=== PATIENT | male | born 1960 | race Caucasian/White ===

== ENCOUNTER 2020-06-17 09:57 | Outpatient (REF) | payer MEDICARE, OTHER, SELFPAY ==
--- NOTE | 2020-06-17 | PFT_ITS ---
Forced vital capacity, FEV1, [id number], and MVV are all normal. Post bronchodilator therapy, there is no significant change. Total lung capacity and residual volume slightly decreased. Diffusion capacity slightly decreased. CONCLUSION: Very mild degree of restrictive lung disorder. No obstructive airway disorder. Clara Gaam MD MSB/MODL / [id number]
== END 2020-06-17 09:58 | disposition home or self-care (01) ==
LOC: HO.RESP 09:57
PROVIDERS: PCP Internal Medicine; Visit Provider Nurse Practitioner Family
DX: R06.02 Shortness of breath (principal); R91.8 Other nonspecific abnormal finding of lung field; Z86.19 Personal history of other infectious and parasitic diseases
CPT/HCPCS: 94060; 94727; 94729

== ENCOUNTER → 2020-08-23 10:06 | Outpatient (BNVA) | payer MEDICARE, OTHER, SELFPAY | PROVIDERS: PCP Internal Medicine; Visit Provider Urology | DX: Z76.89 Persons encountering health services in other specified circumstances (principal) | CPT/HCPCS: 99202 ==

== ENCOUNTER 2020-08-23 11:02 | Outpatient (REF) | payer MEDICARE, OTHER, SELFPAY ==
[2020-08-23 15:21] LABS: Prostate Specific Antigen 1.13 ng/mL (<0.05-4.0)
[2020-08-27 09:32] LABS: Testosterone, Total 439 ng/dL (250-1100)
== END 2020-08-23 11:03 | disposition home or self-care (01) ==
LOC: HO.10HDL 11:02
PROVIDERS: Visit Provider Urology
DX: N40.1 Benign prostatic hyperplasia with lower urinary tract symptoms (principal); N13.8 Other obstructive and reflux uropathy; Z12.5 Encounter for screening for malignant neoplasm of prostate; N48.6 Induration penis plastica
CPT/HCPCS: 36415; 82365; 84153; 84403; 99202

== ENCOUNTER 2020-10-31 08:21 | Outpatient (REF) | payer MEDICARE, OTHER, SELFPAY ==
--- NOTE | ~2020-10-31 | CT_ITS ---
EXAMINATION: CT CHEST WITHOUT CONTRAST CLINICAL INFORMATION: Follow-up pulmonary nodules COMPARISON: Previous chest x-rays August and December 2019 TECHNIQUE: Multidetector volumetric CT imaging of the chest was done. Axial MIP volume rendering provided. Sagittal and coronal reformatted images were obtained. This CT examination was performed using dose optimization techniques as appropriate, variously including the following: *Automated exposure control *Adjustment of mA and/or kV according to patient size (this includes techniques or standardized protocols for targeted exams where dose is matched to indication/reason for exam; i.e. extremities or head) *Use of iterative reconstruction technique DLP: 294 mGy-cm FINDINGS: LUNGS: The lung volumes are low. There is a 4 mm right upper lobe nodule axial image 105 series 5 that is stable. There is a 3 mm calcified right upper lobe nodule axial image 102 series 5. There is a 3 mm superior segment left lower lobe nodule axial image 126 series 5 that is stable. There is a 2 mm right middle lobe nodule axial image 166 series 5 that is stable. There is a 2 mm right lower lobe nodule axial image 168 series 5 that is stable. Previously identified small left upper lobe pulmonary nodule is not appreciated. No new pulmonary nodule is seen. The previously identified groundglass attenuation peripheral areas in the lungs appear improved. There is residual faint increased attenuation and interstitial markings seen in areas of previous groundglass attenuation. MEDIASTINUM: There are prominent mediastinal lymph nodes that are stable. Largest lymph node is a right paratracheal or tracheoesophageal groove lymph node that measures 0.7 x 1.7 cm axial image 8 series 3. The heart is slightly enlarged.. There is no pericardial effusion. There is mild coronary artery calcification. The thoracic aorta is normal in caliber. PLEURA: There is no pleural effusion. No pleural mass or thickening. AXILLA: No lymphadenopathy. UPPER ABDOMEN: Unremarkable. OSSEOUS STRUCTURES: There are mild degenerative changes of the spine. CT/CT chest wo IV con IMPRESSION: Left upper lobe pulmonary nodule seen on August 2019 exam is not seen otherwise small bilateral pulmonary nodules are stable. Resolved peripheral groundglass opacities from December 2019. There is residual increased linear markings and slight increased attenuation seen in these regions. This may represent post inflammatory scarring related to previous viral/Covid pneumonia. This is a nonspecific appearance and interstitial lung disease disease and hypersensitivity pneumonitis should also be considered. Stable mediastinal lymphadenopathy. Slightly enlarged heart.
== END 2020-10-31 08:22 | disposition home or self-care (01) ==
LOC: HO.CT 08:21
PROVIDERS: PCP Internal Medicine; Visit Provider Internal Medicine
DX: R91.8 Other nonspecific abnormal finding of lung field (principal)
CPT/HCPCS: 71250

== ENCOUNTER 2024-10-26 09:46 | Outpatient (REF) | payer MEDICARE, MEDICAID, SELFPAY ==
[2024-10-26 11:52] LABS: MANUAL DIFF FLAG NO
[2024-10-26 12:01] LABS: Basophils Absolute Auto 0.1 X10*3/uL (0.0-0.2); Basophils Percent Auto 1.3 % (0-2); Eosinophils Absolute Auto 0.1 X10*3/uL (0.0-0.4); Eosinophils Percent Auto 1.9 % (0-4); Hematocrit 39.2 % (42.0-52.0); Hemoglobin 12.5 g/dl (14.0-18.0); Imm Gran Abs Auto 0.02 X10*3/uL (0.00-0.03); Imm Gran Pct Auto 0.3 % (0.0-0.4); Lymphocytes Absolute Auto 2.5 X10*3/uL (1.2-4.9); Lymphocytes Percent Auto 38.4 % (20-40); Mean Corpuscular HGB Conc 31.9 g/dl (31.0-36.0); Mean Corpuscular Hemoglobin 26.9 pg (27.0-33.0); Mean Corpuscular Volume 84.3 fL (80.0-98.0); Mean Platelet Volume 10.3 fL (9.4-12.4); Monocytes Absolute Auto 0.7 X10*3/uL (0.1-1.2); Monocytes Percent Auto 10.2 % (2-11); Neutrophils Absolute Auto 3.1 x10*3/uL (2.0-8.3); Neutrophils Percent Auto 47.9 % (45-73); Platelet Count 371 X10*3/uL (160-400); Red Blood Count 4.65 X10*6/uL (4.60-5.80); Red Cell Distribution Width 13.5 % (11.0-16.0); White Blood Count 6.4 X10*3/uL (4.8-10.8)
[2024-10-26 12:22] LABS: Alanine Aminotransferase 27 U/L (0-40); Albumin Level 4.4 g/dL (3.5-5.0); Alkaline Phosphatase 64 U/L (39-117); Anion Gap 13 (12-20); Aspartate Amino Transferase 17 U/L (5-37); Bilirubin Total 0.5 mg/dL (0.0-1.0); Blood Urea Nitrogen 22 mg/dL (9-16); Calcium 9.6 mg/dL (8.4-10.2); Carbon Dioxide 28 mmol/L (22-29); Chloride 104 mmol/L (96-108); Cholesterol 206 mg/dL (<200); Estimated Glomerular Filt Rate > 60; Glucose Random 282 mg/dL (60-115); HDL Cholesterol 34 mg/dL (>40); Iron 75 mcg/dL (45-160); LDL Cholesterol Calculated 133 mg/dL (<100); Percent Iron Saturation 31 % (15-50); Potassium 4.5 mmol/L (3.3-5.1); Sodium 140 mmol/L (135-145); Total Iron Binding Capacity 243 mcg/dL (228-428); Total Protein 7.5 g/dL (6.5-8.0); Triglycerides 199 mg/dL (<150); Unsaturated Iron Binding 168 ug/dL
[2024-10-26 12:33] LABS: Parathyroid Hormone Intact 35.2 pg/mL (8.7-77.1)
[2024-10-26 12:34] LABS: Creatinine Urine 135.56 mg/dL; Microalbum/Creatinine Ratio Ur 31.7 ug/mg cr (<30)
[2024-10-26 12:41] LABS: Ferritin 353 ng/mL (20-250); Vitamin D 25-OH Total 30.7 ng/mL (>30)
[2024-10-26 12:46] LABS: Vitamin B12 354 pg/mL (200-900)
[2024-10-27 15:53] LABS: Calcium, Ionized 5.1 mg/dL (4.7-5.5)
[2024-10-27 22:18] LABS: Prot Elec - Albumin 4.4 g/dL (3.8-4.8); Prot Elec - Alpha1 0.3 g/dL (0.2-0.3); Prot Elec - Alpha2 0.9 g/dL (0.5-0.9); Prot Elec - Beta 1 0.4 g/dL (0.4-0.6); Prot Elec - Beta 2 0.4 g/dL (0.2-0.5); Prot Elec - Gamma 0.8 g/dL (0.8-1.7); Prot Elec - Total Protein 7.2 g/dL (6.1-8.1)
== END 2024-10-26 09:47 | disposition home or self-care (01) ==
LOC: HO.HHCL 09:46
PROVIDERS: Visit Provider Internal Medicine
DX: E83.52 Hypercalcemia (principal); E11.9 Type 2 diabetes mellitus without complications; E78.2 Mixed hyperlipidemia; D50.9 Iron deficiency anemia, unspecified
CPT/HCPCS: 36415; 80053; 80061; 82043; 82306; 82330; 82570; 82607; 82728; 82746; 83540; 83970; 84165; 85025

== ENCOUNTER 2024-11-11 12:01 | Emergency (ER) | payer MEDICARE, MEDICAID, SELFPAY ==
[2024-11-11 12:07] VITALS: BP 147/63; PULSE 87; RESP 18; TEMP 36.7; O2SAT 97
--- NOTE | 2024-11-11 12:14 | ED.GENADULT ---
HPI - General Adult General Chief complaint: General Medical Stated complaint: Nose reddness Time Seen by Provider: 11/11/24 12:10 Source: patient, RN notes reviewed and old records reviewed Mode of arrival: ambulatory Limitations: no limitations History of Present Illness ED Provider: Joycelyn ACUÑA narrative: 64-year-old male with past medical history significant for diabetes presents for evaluation of a red, painful lump on his nose. Patient reports about 2 weeks ago he had [employer] small, painful bump on his nose, the area is now red. He denies any significant swelling. Denies any fevers, chills. Denies any injury to the nose He has no other complaints or concerns at this time Related Data Home Medications ?Medication ?Instructions ?Recorded ?Confirmed amlodipine 5 mg tablet 5 mg PO DAILY 08/23/20 blood sugar diagnostic #10 ea 08/23/20 lancets 28 gauge #100 ea 08/23/20 lisinopril 20 mg tablet 20 mg PO DAILY 08/23/20 metformin 1,000 mg tablet 1,000 mg PO 08/23/20 morphine 15 mg tablet,extended mg PO 08/23/20 release Previous Rx's ?Medication ?Instructions ?Recorded pentoxifylline 400 mg 400 mg PO BID 90 days #180 tabs 08/23/20 tablet,extended release vitamin E (dl, acetate) 450 mg 450 mg PO DAILY #90 caps 08/23/20 (1,000 unit) capsule cyclobenzaprine 10 mg tablet 10 mg PO Q8H #14 tabs 09/05/22 ketorolac 10 mg tablet 10 mg PO Q8H #14 tabs 09/05/22 acetaminophen 500 mg tablet 500 mg PO Q6H PRN fever or pain 09/13/22 (Tylenol Extra Strength) #14 tabs cyclobenzaprine 5 mg tablet 5 mg PO Q8H PRN pain (scale score 09/13/22 7-10) 5 days #14 tabs lidocaine 5 % topical patch 1 patch topical DAILY PRN pain #30 09/13/22 (Lidoderm) ea cephalexin 500 mg capsule 500 mg PO QID 10 days #40 caps 05/23/23 doxycycline hyclate 100 mg tablet 100 mg PO BID #20 tabs 05/23/23 cephalexin 500 mg capsule 500 mg PO QID #28 caps 11/11/24 mupirocin 2 % topical ointment 1 appl topical BID 1 week #22 grams 11/11/24 Allergies Allergy/AdvReac Type Severity Reaction Status Date / Time No Known Allergies Allergy Verified 11/11/24 12:08 [No Known Allergies*] Review of Systems Constitutional: Constitutional: Denies body ache(s), Denies chills and Denies fever(s) Eyes: Eyes: Denies blurry vision ENT: Denies dizziness Cardiovascular: Cardiovascular: Denies chest pain and Denies dyspnea Respiratory: Respiratory: Denies cough and Denies dyspnea Gastrointestinal: Gastrointestinal: Denies abdominal pain, Denies nausea and Denies vomiting Musculoskeletal: Musculoskeletal: Denies back pain Integumentary/Breasts: Skin/Breast: Reports erythema, Reports skin swelling and Denies wounds Neurologic: Denies dizziness PMFSH Past Medical History Medical History (Updated 11/11/24 @ 12:16 by Darren Hirsch) Diabetes Social History Social History (System 09/30/24 @ 11:43 by Roshni Shaw) Alcohol intake: current Alcohol intake frequency: a few times a week Advance Directives: No Advance Directives Information Provided: Yes Physical Exam ED Vital Signs: Vital Signs - 24 hr 11/11/24 12:07 11/11/24 12:23 Temperature 98.0 F 98.0 F Pulse Rate 87 87 Respiratory Rate 18 18 Blood Pressure 147/63 H 147/63 H Pulse Oximetry 97 97 Oxygen Delivery Method Room Air Room Air BMI result Body Mass Index 30.0 Const General: healthy appearing, comfortable, no acute distress, alert and awake Nutritional Appearance: well nourished Orientation/consciousness: patient oriented x3 HENMT Other: 1 cm area of erythema with a small amount of induration to the tip of the nose slightly on the right side. No open wounds, no drainage. He was the patient. No evidence of fracture nasal bone edema or abscess. No septal hematoma Head: Yes normocephalic and Yes atraumatic Eyes Eyelids: Yes eyelids normal Conjunctivae: conjunctivae normal Sclerae: sclerae normal Corneas: corneas normal Pupils: Equal, round and reactive pupils present EOM: EOMs intact bilaterally Neck Neck: Yes full ROM Resp Effort & Inspection: normal respiratory effort, able to speak in complete sentences and not labored GI Inspection: No distended Palpation (GI): Soft to palpation, not firm, nontender, no guarding and not rigid Skin General skin exam: elasticity normal Neuro General: patient oriented x3 Cranial nerves: Yes Equal, round and reactive pupils present and Yes Bilaterally intact EOM present Cognition (Neuro): normal cognition Extrem Other: Moving all extremities well without any obvious deformities Medical Decision Making Medical Decision Making MDM Narrative: 64-year-old male presents for evaluation of a 2 week history of a red painful lump to his nose. This appears most consistent with a mild skin infection. We will treat with mupirocin and cephalexin. If this does not resolve with antibiotics, I encouraged the patient to get a biopsy to rule out malignancy though I feel this is less likely given the acuity Differential Diagnosis Differential Diagnoses: The differential diagnosis associated with the presentation includes Cellulitis Abscess Dermatitis Basal cell carcinoma Squamous cell carcinoma Melanoma Discharge Plan Discharge Clinical Impression: Cellulitis of nasal tip Patient Disposition: Home, Self-Care Instructions: Cellulitis (ED) Additional Instructions: Your symptoms are most consistent with a minor skin infection Use the antibiotic ointment twice daily for 1 week. Use the antibiotic pills 4 times a day for 1 week It was important to follow up with your primary doctor. If the redness does not resolve with the antibiotics, you may need a biopsy Return for new or worsening symptoms Prescriptions: New mupirocin 2 % ointment 1 appl topical BID 7 Days Qty: 22 0RF cephalexin 500 mg capsule 500 mg PO QID Qty: 28 0RF No Action cyclobenzaprine 5 mg tablet 5 mg PO Q8H PRN (Reason: pain (scale score 7-10)) 5 Days Qty: 14 0RF acetaminophen [Tylenol Extra Strength] 500 mg tablet 500 mg PO Q6H PRN (Reason: fever or pain) Qty: 14 0RF lidocaine [Lidoderm] 5 % adhesive patch,medicated 1 patch topical DAILY MDD remove after 12 hours PRN (Reason: pain) Qty: 30 0RF Rx Instructions: leave on most painful area for up to 12 hrs cyclobenzaprine 10 mg tablet 10 mg PO Q8H Qty: 14 0RF ketorolac 10 mg tablet 10 mg PO Q8H Qty: 14 0RF Rx Instructions: first dose given in the ED by IM and patient tolerated well cephalexin 500 mg capsule 500 mg PO QID 10 Days Qty: 40 0RF doxycycline hyclate 100 mg tablet 100 mg PO BID Qty: 20 0RF morphine 15 mg tablet extended release PO amlodipine 5 mg tablet 5 mg PO DAILY (DME) FreeStyle Lite Strips Strip See Rx Instructions Not Applicable DAILY Qty: 10 Rx Instructions: As directed (DME) lancets 28 gauge misc See Rx Instructions topical DAILY Qty: 100 Rx Instructions: As directed lisinopril 20 mg tablet 20 mg PO DAILY metformin 1,000 mg tablet 1,000 mg PO pentoxifylline 400 mg tablet extended release 400 mg PO BID 90 Days Qty: 180 1RF Rx Instructions: administer with meals vitamin E (dl, acetate) 450 mg (1,000 unit) capsule 450 mg PO DAILY Qty: 90 1RF Interventions: ED Discharge Assessment Last Done: 11/11/24 12:23 Discharge Date/Time: 11/11/24 12:30 Print Language: Guamanian
[2024-11-11 12:23] VITALS: BP 147/63; PULSE 87; RESP 18; TEMP 36.7; O2SAT 97
--- OUTSIDE RECORDS SUMMARY | 2024-11-11 14:27 | XMS_ITS | Encounter Summary ---
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 Name Role Phone Claus Berg MD Primary Care Provide r Encounter Details Date Type Department Care Team (Late st Contact Info) Description 12/12/2022 Abstract [facility] [address] [place], [place] [phone] Claus Berg MD [address] [place], [place] [phone] Social History Tobacco Use Types Packs/Day Years Used Date Smoking Tobacco: Never Smokeless Tobacco: Never Depression Answer Date Recorded Patient Health Questionnaire-9 Score 0 10/02/2022 Depression Answer Date Recorded Patient Health Questionnaire-2 Score 0 10/02/2022 Sex and Gender Information Value Date Recorded Sex Assigned at Male 06/04/2022 10:15 AM EDT Legal Sex Male 10:15 AM EDT Gender Identity Male 06/04/2022 10:15 AM EDT Sexual Orientation Straight 06/04/2022 10 :15 AM EDT documented as of this encounter Plan of Treatment Upcoming Encounters Date Type Department Care Team (Late st Contact Info) Description 01/28/2025 1:15 PM EDT Office Visit [facility] [address], [place] [phone] Claus Berg MD [address] [place], [place] [phone] documented as of this encounter Procedures Procedure Name Priority Date/Time Associated Diagnosis Comments COLONOSCOPY Routine 01/10/2018 documented in this encounter Results * Colonoscopy (01/10/2018) Colonoscopy Normal Normal 01/10/2018 Narrative Tara Britton - 01/10/2018 4:03 PM EDT Recommended 10 year follow up us Historical Provider HEALTH MAINTENANCE Edited Result - Final documented in this encounter Visit Diagnoses Not on filedocumented in this encounter Additional Health Concerns Assessment Noted Time PHQ-9 Depression Total Score: 0 10/02/19 23 10:50 AM EST documented as of this encounter Care Teams Lead Sewage Plant Operator Relationship Specialty Start Date End Date Claus Berg MD [address] [place] [address] PCP - General Internal Medicine 05/12/14 documented as of this encounter
--- OUTSIDE RECORDS SUMMARY | 2024-11-11 14:27 | XMS_ITS | Clinical Summary ---
Author Organization [employer] [facility] it[facility] Address [address] [place] [address] Care Team Providers Care Ecd Name Role Phone Unavailable Primary Care Provider Unavailabl e Social History Tobacco Use Types Packs/Day Years Used Date Smoking Tobacco: Never Assessed Sex and Gender Information Value Date Recorded Sex Assigned at Not on file Legal Sex Male 4:34 AM EST Gender Identity Not on file Sexual Orientation Not on file Plan of Treatment Health Maintenance Due Date Last Done Comments DTaP,Tdap,and Td Vaccines (1 - Tdap) 1977 Pneumococcal Vaccine: 50+ Ye ars (1 of 1 - PCV) 2008 Zoster Vaccines (1 of 2) 2008 COVID-19 Vaccine ( - 2023-2 5 season) 2024 Influenza Vaccine (#1) 2024 RSV Immunization Adult Patie nts (1 - 1-dose 75+ series) 2033 HIB Vaccines Aged Out No longer eligi ble based on patient's age to complete this topic HPV Vaccines Aged Out No longer eligi ble based on patient's age to complete this topic Hepatitis A Vaccines Aged Out No long er eligible based on patient's age to complete this topic Hepatitis B Vaccines Aged Out No long er eligible based on patient's age to complete this topic IPV Vaccines Aged Out No longer eligi ble based on patient's age to complete this topic MMR Vaccines Aged Out No longer eligi ble based on patient's age to complete this topic Meningococcal ACWY Vaccine Aged Out N o longer eligible based on patient's age to complete this topic Meningococcal B Vaccine Aged Out No l onger eligible based on patient's age to complete this topic RSV Immunization Patients Un myriam 20 months Aged Out No longer eligible b ased on patient's age to complete this topic Varicella Vaccines Aged Out No longer eligible based on patient's age to complete this topic
--- OUTSIDE RECORDS SUMMARY | 2024-11-11 14:27 | XMS_ITS | Clinical Summary ---
Author Organization [employer] Address [address] [facility] [address] [facility] [address] [place] [address] Care Team Providers Care Squad Leader Name Role Phone Claus Breg MD Primary Care Provide r Allergies No known active allergies Medications glucose blood (FREESTYLE LITE) test strip apply 1 by to skin route every day Active sildenafil (Viagra) 100 MG tablet take 1 tablet by oral route every day as needed approximately 1 hour before sexual activity 021 Active ketorolac (Acular) 0.5 % ophthalmic solution INSTILL 1 DROP INTO AFFECTED EYE THREE TIMES A DAY DIRECTED STARTING 2 DAYS PRIOR TO EACH SURGERY. TAPER DIRECTED. 022 Active tiZANidine (Zanaflex) 2 MG tabletIndications :Chronic midline low back pain without sciatica Take 1 tablet (2 mg) by mouth every 8 (eight) hours if needed for muscle spasms. 30 tablet 023 Active Acetaminophen Extra Strength 500 MG tablet TAKE 1 TABLET BY MOUTH EVERY 6 HOURS NEEDED FOR FEVER OR PAIN 023 Active morphine CR (MS Contin) 15 MG 12 hr tabletIndications :Chronic midline low back pain without sciatica Take 1 tablet (15 mg) by mouth if needed each day for severe pain. Do not crush, chew, or split. 7 tablet 024 Active metFORMIN (Glucophage) 1000 MG tablet TAKE 1 TABLET BY MOUTH TWICE DAILY WITH THE MORNING AND EVENING MEAL 180 tablet 1 024 Active amLODIPine (Norvasc) 5 MG tabletIndications :Essential hypertension Take 1 tablet (5 mg) by mouth Once per day. 90 tablet 1 025 Active lisinopril 20 MG tabletIndications :Essential hypertension TAKE 1 TABLET BY MOUTH EVERY DAY 90 tablet 1 025 Active Continuous Glucose Merchandise Planner (FreeStyle Arnoldo 2 [place]) deviceIndications :Type 2 diabetes mellitus without complication, without long-term current use of insulin (CMS/[facility]) Scan sensor every 8 hours 1 each 3 Active Continuous Glucose Sensor (FreeStyle Arnoldo 2 Sensor) miscIndications:T ype 2 diabetes mellitus without complication, without long-term current use of insulin (CMS/[facility]) Apply 1 sensor every 14 days 2 each 3 Active rosuvastatin (Crestor) 10 MG tabletIndications :Mixed hyperlipidemia Take 1 tablet (10 mg) by mouth Once per day. 30 tablet 6 025 2025 Active Dulaglutide (Trulicity) 0.75 MG/0.5ML solution auto-injectorIndi cations:Type 2 diabetes mellitus without complication, without long-term current use of insulin (CMS/[facility]) Inject 0.75 mg under the skin 1 (one) time per week. 0.5 mL 6 Active fenofibrate micronized (Lofibra) 134 MG capsuleIndication s:Mixed hyperlipidemia take 1 capsule by oral route every day with food 30 capsule 3 024 2024 Discontinued(A lternate therapy) Dulaglutide (Trulicity) 0.75 MG/0.5ML solution auto-injectorIndi cations:Type 2 diabetes mellitus without complication, without long-term current use of insulin ([facility]) Inject 0.75 mg under the skin 1 (one) time per week. 0.5 mL 1 025 2024 Discontinued(R eorder (will not trigger notification to Pharmacy)) Active Problems Problem Noted Date Diagnosed Date Other specified anemias 10/27/2024 Assessment & Plan (10/27/2024 11:44 AM EDT): Patient with anemia, B12 and folate normal, Iron studies normal Etiology Lab Results Component Value Date WBC 6.4 10/26/2024 HGB 12.5 (L) 10/26/2024 HCT 39.2 (L) 10/26/2024 MCV 84.3 10/26/2024 PLT 371 10/26/2024 Plan: Hematology referral for further work up Overweight (BMI 25.0-29.9) 10/27/2024 Assessment & Plan (10/27/2024 11:55 AM EDT): Patient has been counseled and educated about diet and exercise. Personal goal of weight loss discussedPatient has comorbidity of: DM Serum calcium elevated 12/12/2023 Assessment & Plan (12/12/2023 10:25 AM EDT): Will obtain an ionized calcium pending on result will decide if further work up needed Mild elevation 10.5 ( limit 10.2) Complete edentulism 10/17/2023 Ill-fitting dentures 10/16/2023 Preventative health care 09/12/2023 Assessment & Plan (12/12/2023 10:12 AM EDT): PSA: 09/26/2023 Normal Colonoscopy: done on 04/20/2013 showed a tubular adenoma (Dr Lito Leung) Repeat 01/10/2018 was Normal 10 year f/u recommended Vaccines: Declines Flu shot Td: 05/08/2005 Pneumovax: 01/21/2009 Assessment & Plan (09/12/2023 10:39 AM EST): PSA 05/2018 Normal Colonoscopy: done on 04/20/2013 showed a tubular adenoma (Dr Lito Lenug) Repeat 01/10/2018 was Normal 10 year f/u recommended Vaccines: Declines Flu shot Td: 05/08/2005 Pneumovax: 01/21/2009 Primary osteoarthritis of right knee 10/02/2022 Assessment & Plan (10/02/2022 9:42 AM EST): Patient with chronic right knee pain Plain films of right hip and knee showed mild deg arthritis of hip and mild to moderate tricompartmental arthritis of right knee 12/09/2014 PT eval completed, pt does not want to have any intervention or treatment at the moment Class 1 obesity due to excess calories in adult 10/02/2022 Assessment & Plan (10/02/2022 10:45 AM EST): Patient has been counseled and educated about diet and exercise. Personal goal of weight loss discussedPatient has comorbidity of: DM, HTN, High Lipids Exercise counseling 10/02/2022 Decreased hearing of both ears 10/02/2022 Assessment & Plan (10/02/2022 11:13 AM EST): Pt with c/o worsening hearing Plan: ENT evaluation Pulmonary nodules 08/07/2022 Assessment & Plan (10/02/2022 9:44 AM EST): ER visit on 08/13/19 shows incidental finding on chest CT of: Multiple tiny subcentimeter pulmonary nodules, some of which are new from the previous examination. At least one of the nodules is calcified. Recommend additional follow-up low-dose CT chest in 12 months time. Repeat Chest CT 10/2020 showed: Left upper lobe pulmonary nodule seen on August 2019 exam is not seen otherwise small bilateral pulmonary nodules are stable. Resolved peripheral groundglass opacities from December 2019. There is residual increased linear markings and slight increased attenuation seen in these regions. This may represent post inflammatory scarring related to previous viral/Covid pneumonia. This is a nonspecific appearance and interstitial lung disease disease and hypersensitivity pneumonitis should also be considered. Stable mediastinal lymphadenopathy. Slightly enlarged heart. No further intervention Other male erectile dysfunction 08/07/2022 Assessment & Plan (10/02/2022 9:43 AM EST): Testosterone Free and Total normal Uses Viagra 100 mg tbas 1/2 tab 1 hr prior to intercourse Bilateral cataracts 12/20/2021 Bunion 11/25/2018 Rotator cuff impingement syndrome 09/17/2017 Assessment & Plan (10/02/2022 9:43 AM EST): Pt with previous c/o moderate pain on his right shoulder that was a result of a friend of him pulling onto his right arm. since then he has been unable to lift his arm over the 90 degree angle. Not improving despite daily use of NSAIDS Evaluated by Dr Gavi Mitchell Orthopaedic specialist who diagnosed him with this condition and recommended a steroid injection Essential hypertension 06/23/2015 Assessment & Plan (08/25/2024 3:11 PM EST): Pt here for a f/u uncontrolled He is supposed to be on Lisinopril 40 mg po daily and Amlodipine 5 mg po daily . Pt reports non compliance Pt's most recent electrolytes, Bun and Creatinine done on: 12/06/2023 were wnl. Will repeat patient has advised to adhere to a low sodium diet, encouraged about medication compliance, counseled about weight loss. Plan: No changes , repeat BMP f/u 3 months Assessment & Plan (12/12/2023 10:22 AM EDT): Pt here for a f/u controlled He is supposed to be on Lisinopril 40 mg po daily and Amlodipine 5 mg po daily Pt's most recent electrolytes, Bun and Creatinine done on: 12/06/2023 were wnl. patient has advised to adhere to a low sodium diet, encouraged about medication compliance, counseled about weight loss. Plan: No changes f/u 3 months Assessment & Plan (09/12/2023 10:26 AM EST): Pt here for a f/u Uncontrolled, he did not take his meds today He is supposed to be on Lisinopril 40 mg po daily and Amlodipine 5 mg po daily Pt's most recent electrolytes, Bun and Creatinine done on: 10/09/2022 were wnl. Today will order a repeat patient has advised to adhere to a low sodium diet, encouraged about medication compliance, counseled about weight loss. Plan: No changes f/u 3 months Assessment & Plan (10/02/2022 11:14 AM EST): Pt here for a f/u Uncontrolled, he did not take his meds today He is supposed to be on Lisinopril 40 mg po daily and Amlodipine 5 mg po daily Pt's most recent electrolytes, Bun and Creatinine done on: 09/20/2021 were wnl. Today will order a repeat patient has advised to adhere to a low sodium diet, encouraged about medication compliance, counseled about weight loss. Plan: No changes since pts BP is elevated due to non compliance f/u 3 months Mixed hyperlipidemia 06/23/2015 Assessment & Plan (10/27/2024 11:46 AM EDT): here for a f/u Patient with elevated lipids. Most recent lipid profile from: Lab Results Component Value Date TRIG 199 (H) 10/26/2024 TRIG 286 (H) 09/26/2023 CHOL 206 (H) 10/26/2024 CHOL 222 (H) 09/26/2023 LDLCHOLCAL 133 (H) 10/26/2024 LDLCHOLCAL 124 (H) 09/26/2023 HDL 34 (L) 10/26/2024 HDL 41 09/26/2023 He used to be on Fenofibrate, In the past he was taking Atorvastatin Plan: start Crestor 10 mg po qhs Patient has been advised to try to adhere to a low cholesterol diet, counseled and educated about diet and exercise, Patient has been encouraged to come up with a personal goal for weight loss. The 10-year ASCVD risk score (Ivonne SEE, et al., 2019) is: 44% Values used to calculate the score: Age: 64 years Sex: Male Is Non- : No Diabetic: Yes Tobacco smoker: No Systolic Blood Pressure: 152 mmHg Is BP treated: Yes HDL Cholesterol: 34 mg/dL Total Cholesterol: 206 mg/dL Assessment & Plan (08/25/2024 2:57 PM EST): here for a f/u Patient with elevated lipids. Most recent lipid profile from: 09/26/2023 Lab Results Component Value Date TRIG 286 (H) 09/26/2023 TRIG 411 (H) 10/09/2022 CHOL 222 (H) 09/26/2023 LDLCHOLCAL 124 (H) 09/26/2023 HDL 41 09/26/2023 He is supposed to be on Fenofibrate instead 134 mg po daily, In the past he was taking Atorvastatin Patient has been advised to try to adhere to a low cholesterol diet, counseled and educated about diet and exercise, Patient has been encouraged to come up with a personal goal for weight loss. Repeat Lipid profile The 10-year ASCVD risk score (Ivonne SEE, et al., 2019) is: 48.5% Values used to calculate the score: Age: 64 years Sex: Male Is Non- : No Diabetic: Yes Tobacco smoker: No Systolic Blood Pressure: 169 mmHg Is BP treated: Yes HDL Cholesterol: 41 mg/dL Total Cholesterol: 222 mg/dL Assessment & Plan (12/12/2023 10:11 AM EDT): here for a f/u Patient with elevated lipids. Most recent lipid profile from: 09/26/2023 Lab Results Component Value Date TRIG 286 (H) 09/26/2023 TRIG 411 (H) 10/09/2022 CHOL 222 (H) 09/26/2023 LDLCHOLCAL 124 (H) 09/26/2023 HDL 41 09/26/2023 He is supposed to be on Fenofibrate instead 134 mg po daily, In the past he was taking Atorvastatin Lipid seemed to have improved Patient has been advised to try to adhere to a low cholesterol diet, counseled and educated about diet and exercise, Patient has been encouraged to come up with a personal goal for weight loss. The 10-year ASCVD risk score (Ivonne SEE, et al., 2019) is: 32.8% Values used to calculate the score: Age: 63 years Sex: Male Is Non- : No Diabetic: Yes Tobacco smoker: No Systolic Blood Pressure: 132 mmHg Is BP treated: Yes HDL Cholesterol: 41 mg/dL Total Cholesterol: 222 mg/dL Assessment & Plan (09/12/2023 10:28 AM EST): here for a f/u Patient with elevated lipids. Most recent lipid profile from: 10/09/2022 shows Component Ref Range & Units 11 mo ago (10/09/22) 1 yr ago (07/02/22) 1 yr ago (09/20/21) 3 yr ago (02/16/20) Cholesterol, Total <200 mg/dL 227??High?? 209??High?? 202??High?? 241??High?? HDL Cholesterol > OR = 40 mg/dL 37??Low?? 39??Low?? 41 41 Triglycerides <150 mg/dL 411??High?? 223??High?? CM 403??High?? CM 228??High?? CM Comment: ?? If a non-fasting specimen was collected, consider repeat triglyceride testing on a fasting specimen if clinically indicated. Chester et al. J. of Clin. Lipidol. 2015;9:129-169. ?? LDL Cholesterol 134??High?? R, CM SEE COMMENT R, CM 161??High?? R, CM Comment: ?? LDL cholesterol not calculated. Triglyceride levels greater than 400 mg/dL invalidate calculated LDL results. ?? Reference range: <100 ?? Desirable range <100 mg/dL for primary prevention; ?? <70 mg/dL for patients with CHD or diabetic patients with > or = 2 CHD risk factors. ?? LDL-C is now calculated using the Umesh calculation, which is a validated novel method providing better accuracy than the Friedewald equation in the estimation of LDL-C. Paul SS et al. PACO. 2013;310(19): 3539-2121 (http://education.[employer]/faq/XRZ060) Chol/HDLC Ratio <5.0 (calc) 6.1??High?? 5.4??High?? 4.9 5.9??High?? Non-HDL Cholesterol <130 mg/dL (calc) 190??High?? 170??High?? CM 161??High?? CM 200??High?? CM He is supposed to be on Fenofibrate instead 134 mg po daily, In the past he was taking Atorvastatin repeat Lipid profile prior to next visit Patient has been advised to try to adhere to a low cholesterol diet, counseled and educated about diet and exercise, Patient has been encouraged to come up with a personal goal for weight loss. Assessment & Plan (10/02/2022 9:39 AM EST): here for a f/u Patient with elevated lipids. Most recent lipid profile from: 07/02/2022 shows a total Cholesterol of: 209 Triglycerides of: 223 HDL of: 39 and LDL of: 134 He is on Fenofibrate instead 67 mg po daily, In the past he was taking Atorvastatin repeat Lipid profile prior to next visit Patient has been advised to try to adhere to a low cholesterol diet, counseled and educated about diet and exercise, Patient has been encouraged to come up with a personal goal for weight loss. Tubular adenoma 04/22/2013 Assessment & Plan (10/02/2022 9:44 AM EST): Colonoscopy done on 04/20/2013 showed a tubular adenoma (Dr Lito Leung). repeat 01/10/[address] Huff recommended 10 year f/u Chronic midline low back pain without sciatica 0 12/08/2012 Assessment & Plan (12/12/2023 10:20 AM EDT): Pt here for f/u with c/u acute on chronic low back pain. Seen in the ER 12/06/2023 Pt has a Hx of chronic low back pain, previous treatment in the past with PT and epidural injections which according to pt were not helpful. Pt had a neurosurgical evaluation (Dr Hearn) on 06/28/2004 who reviewed pt's MRI that showed a disc herniation abutting and compressing the S1 nerve root on the left side. he stated that there was no doubt that the pt had a lumbar radiculopathy in the left side and most probably a disc herniation evidence by MRI at the level of L5-S1, encroaching upon the S1 nerve root. Back then he stated that if the symptoms were to persist a surgery was indicated, but pt was not interested in any surgical interventions. His last MRI on record was done in 2006 and was pretty much unchanged. I Exam today suggestive of muscle spasm Have been prescribing MS contin 15 mg po daily and on a PRN basis. Pt was seen at [facility] recently with c/o acute on chronic back pain Pt already scheduled to go to [facility] 12/20/2023 Assessment & Plan (10/02/2022 11:12 AM EST): Pt here for f/u with c/u acute on chronic low back pain. Pt has a Hx of chronic low back pain, previous treatment in the past with PT and epidural injections which according to pt were not helpful. Pt had a neurosurgical evaluation (Dr Hearn) on 06/28/2004 who reviewed pt's MRI that showed a disc herniation abutting and compressing the S1 nerve root on the left side. he stated that there was no doubt that the pt had a lumbar radiculopathy in the left side and most probably a disc herniation evidence by MRI at the level of L5-S1, encroaching upon the S1 nerve root. Back then he stated that if the symptoms were to persist a surgery was indicated, but pt was not interested in any surgical interventions. His last MRI on record was done in 2006 and was pretty much unchanged. I Patient was seen at [facility] in 2 different ocassions. Exam today suggestive of muscle spasm Have been prescribing MS contin 15 mg po daily and on a PRN basis. Interested in seeing a cashier tube room I have added a muscle relaxant today will refer to [facility] Type 2 diabetes mellitus without complication Assessment & Plan (10/27/2024 11:52 AM EDT): Pt here for a f/u He is on a regimen of: Metformin 1000 mg po BID and Trulicity 0.75 once a week Glipizide was discontinued Hgb A1c 08/25/2024: 9.9 from 7.3 from a previous one 10.9 Pt declined to come and see our certified lactation educator. Did not want to Inject Trulicity. Today he is agreable Previously started on by Kristina Lopez ANP Eye exam , pt referred to our Eye care Program Microalbumin checked on: 06/20/2020 was: 1.3 Pt on an JOEL inhibitor Lisinopril Foot check risk of zero Pt reminded to take Asa 81 mg po daily Pt declined medbox. Plan: Continue current regimen Pt advised to: adhere to diabetic diet check your blood sugars regularly check your feet on a daily basis Assessment & Plan (08/25/2024 3:10 PM EST): Pt here for a f/u He is on a regimen of: Metformin 1000 mg po BID patient tells me he ran out of Glipizide XL 5 mg po daily Hgb A1c 08/25/2024: 9.9 from 7.3 from a previous one 10.9 Pt declined to come and see our certified lactation educator. Did not want to Inject Trulicity. Today he is agreable Previously started on by Kristina Lopez ANP Eye exam , pt referred to our Eye care Program Microalbumin checked on: 06/20/2020 was: 1.3 Pt on an JOEL inhibitor Lisinopril Foot check risk of zero Pt reminded to take Asa 81 mg po daily Pt declined medbox. Plan: start Trulicity 0.75 mcg weekly Pt denies any hx of papillary thyroid cancer or family Hx of this, No hx of pancreatitis. STOP Glipizide 1 month f/u Pt advised to: adhere to diabetic diet check your blood sugars regularly check your feet on a daily basis Assessment & Plan (12/12/2023 10:24 AM EDT): Pt here for a f/u DM improved He is on a regimen of: Metformin 1000 mg po BID and Glipizide XL 5 mg po daily Glucometer today shows improvement with an average of 113 Hgb A1c 09/12/2023: 7.3 from a previous one 10.9 Pt declined to come and see our certified lactation educator. Did not want to Inject Trulicity Previously started on by Kristina Lopez ANP Eye exam , pt referred to our Eye care Program Microalbumin checked on: 06/20/2020 was: 1.3 Pt on an JOEL inhibitor Lisinopril Foot check risk of zero Pt reminded to take Asa 81 mg po daily Pt declined medbox. Plan: Continue current regimen 3 months f/u Pt advised to: adhere to diabetic diet check your blood sugars regularly check your feet on a daily basis Assessment & Plan (09/12/2023 10:41 AM EST): Pt here for a f/u DM, uncontrolled He is on a regimen of: Metformin 1000 mg po BID and Glipizide XL 5 mg po daily Pt tells me that since he started taking his medications regularly his BG is better Glucometer today shows improvement with an average of 131 Hgb A1c 09/12/2023: 10.9 from a previous one of 9.2 Pt declined to come and see our certified lactation educator. Did not want to Inject Trulicity Previously started on by Kristina Lopez ANP Eye exam , pt referred to our Eye care Program Microalbumin checked on: 06/20/2020 was: 1.3 Pt on an JOEL inhibitor Lisinopril Foot check risk of zero Pt reminded to take Asa 81 mg po daily Pt declined medbox. Plan: Pt would like to stay as is 3 months f/u Pt advised to: adhere to diabetic diet check your blood sugars regularly check your feet on a daily basis Assessment & Plan (10/02/2022 10:56 AM EST): Pt here for a f/u DM, improving He is on a regimen of: Metformin 1000 mg po BID and Glipizide XL 5 mg po daily Pt tells me that since he started taking his medications regularly his BG is better Glucometer today shows improvement with an average of 131 Hgb A1c 10/02/2021 Was 9.2 from a previous one of 10.2 Pt declined to come and see our certified lactation educator. Did not want to Inject Trulicity Previously started on by Kristina BACA Eye exam , pt referred to our Eye care Program Microalbumin checked on: 06/20/2020 was: 1.3 Pt on an JOEL inhibitor Lisinopril Foot check risk of zero Pt reminded to take Asa 81 mg po daily Pt declined medbox. Plan: Pt would like to stay as is 4 months f/u Pt advised to: adhere to diabetic diet check your blood sugars regularly check your feet on a daily basis Encounters Date Type Department Care Team Description 10/27/2024 11:30 AM EDT Office Visit [facility] [place] [address] Claus Berg MD Anemia due to other cause, not classified (Primary Dx); Type 2 diabetes mellitus without complication, without long-term current use of insulin ([facility]); Mixed hyperlipidemia; Overweight (BMI 25.0-29.9); Dietary counseling; Exercise counseling 10/27/2024 Travel 10/15/2024 Telephone [facility] [facility] [place] [address] Yessenia Chicas RNhelicopter repairer 10/14/2024 Telephone [facility] [address] [facility] [place] [address] Claus Berg MD Chart Prep 10/06/2024 Orders Only [facility] [address] [facility] [place] [address] Claus Berg MD Iron deficiency anemia, unspecified iron deficiency anemia type (Primary Dx) 10/05/2024 Telephone [facility] [address] [facility] [place] [address] Yessenia Chicas, RN Results 10/05/2024 Orders Only [facility] [place] [facility] [address] Claus Berg MD Serum calcium elevated (Primary Dx); Iron deficiency anemia, unspecified iron deficiency anemia type 10/05/2024 Orders Only [facility] [address] [facility], [place] [id number] Claus Berg MD Serum calcium elevated (Primary Dx); Iron deficiency anemia, unspecified iron deficiency anemia type 08/31/2024 Telephone [facility] [address] [place], [place] [id number] Yessenia Chicas, skiver welt end Question 08/25/2024 2:15 PM EST Office Visit [facility] [address] [facility], [place] [id number] Claus Berg MD Essential hypertension (Primary Dx); Type 2 diabetes mellitus without complication, without long-term current use of insulin ([facility]); Mixed hyperlipidemia 08/25/2024 Travel 08/13/2024 Telephone [facility] [address] [place] [address] Claus Berg MD Chart Prep from Last 3 Months Immunizations Name Administration Dates Next Due Influenza, IIV3, injectable 06/12/2006 Pneumococcal Polysaccharide PPSV23 01/21/2009 TD (adult), 2 Lf tetanus tox oid, preservative free, adsorbed 05/08/2005 Tdap 02/07/2017 Social History Tobacco Use Types Packs/Day Years Used Date Smoking Tobacco: Former Cigarettes Q uit: 10/28/2015 Passive Smoke Exposure: Past Smokeless Tobacco: Never Tobacco Cessation:Counseling Given: Not Answered Depression Answer Date Recorded Patient Health Questionnaire-9 Score 0 10/27/2024 Patient Health Questionnaire-9 Score 0 10/27/2024 Last PHQ-9: Questionnaire Data Not on file 0 10/27/2024 Housing Stability Answer Date Recorded What is your housing situation today? I have lorene michelle 12/12/[address] you li ve. Do you have problems with any of the following? None of the above 12/12/2023 Food Insecurity Answer Date Recorded Within the past 12 months, y ou worried that your food would run out before you got money to buy more: Never True 12/12/2023 Within the past 12 months,th e food you bought just didn't last and you didn't have enough money to get more: Never True 04/2024 Transportation Answer Date Recorded In the past 12 months, has l ack of transportation kept you from medical appts, meetings, work or from getting things needed for daily living? No 12/12/2023 Utilities Answer Date Recorded In the past 12 months, has t he electric, gas, oil or water company threatened to shut off services in your home? No 12/12/2023 Depression Answer Date Recorded Patient Health Questionnaire-2 Score 0 10/27/2024 Internet Access Answer Date Recorded Internet Access Q1 Yes 10/27/2024 Internet Access Q2 Not on file 10/27/2024 Sex and Gender Information Value Date Recorded Sex Assigned at Male 06/04/2022 10:15 AM EDT Legal Sex Male 10:15 AM EDT Gender Identity Male 06/04/2022 10:15 AM EDT Sexual Orientation Straight 06/04/2022 10 :15 AM EDT Last Filed Vital Signs Vital Sign Reading Time Taken Comments Blood Pressure 138/80 10/27/2024 11:52 AM EDT Pulse 72 10/27/2024 11:22 AM EDT Temperature 36.1 ??C (96.9 ??F) 10/27/2024 11:22 AM E DT Respiratory Rate 20 10/27/2024 11:22 AM EDT Oxygen Saturation 99% 10/27/2024 11:22 AM EDT Inhaled Oxygen Concentration - - Weight 88.5 kg (195 lb) 10/27/2024 11:22 AM EDT Height 175.3 cm (5' 9 ) 10/27/2024 11:22 AM EDT Body Mass Index 28.8 10/27/2024 11:22 AM EDT Plan of Treatment Upcoming Encounters Date Type Department Care Team (Late st Contact Info) Description 01/28/2025 1:15 PM EDT Office Visit [facility] [address] [place] [address] Claus Berg MD [address] [place], [place] [phone] Health Maintenance Due Date Last Done Comments CT Colonography 1958 Dental Prophylaxis 1958 FIT DNA/Cologuard 1958 FIT 1958 FOBT 1958 Sigmoidoscopy 1958 Eye Exam 1968 Zoster Vaccines (1 of 2) 2008 Pneumococcal Vaccine: 50+ Years (2 of 2 - PCV) 01/21/2010 01/21/2009 Dental X-Ray: Bitewings 07/24/2012 07/23/2011 Dental Oral Exam 05/05/2018 11/01/2017, , 01/13/2014 Dental X-Ray: Full Mouth 11/02/2020 018, 01/13/2014, 07/23/2011 COVID-19 Vaccine ( season) 2024 11/15/2020, 10/18/2020 Influenza Vaccine (#1) 2024 06/12/2006 Diabetes: Foot Exam 09/12/2024 09/12/2023, Diabetes: Hemoglobin A1C 11/23/2024 025, 12/12/2023, 09/12/2023, Additional history exists Diabetes: Urine Protein Screening 10/26/2025 10/26/2024, 10/09/2022, 09/20/2021, Additional history exists Lipid Panel 10/26/2025 10/26/2024, 09/06, 10/09/2022, Additional history exists Alcohol/Substance Use Screening 10/27/2025 10/27/2024 Depression Screening 10/27/2025 10/27/2024, 10/28/19 SDOH Screening 10/27/2025 10/27/2024 Tobacco Screening 10/27/2025 10/27/2024 DTaP/Tdap/Td Vaccines (2 - Td or Tdap) 02/07/2027 02/07/2017, 05/08/2005 Colonoscopy 01/11/2028 01/10/2018 Colorectal Cancer Screening 01/11/2028 RSV Patients and Patients Aged 60 years or older (1 - 1-dose 75+ series) 2033 Hepatitis C Screening Completed 10/09/2022, 022 HIB Vaccines Aged Out No longer eligi [...] patient's age to complete this topic Meningococcal Vaccine Aged Out No ean shelton eligible based on patient's age to complete this topic RSV under 20 months Aged Out No longe r eligible based on patient's age to complete this topic Rotavirus Vaccines Aged Out No longer eligible based on patient's age to complete this topic Procedures Procedure Name Priority Date/Time Associated Diagnosis Comments POCT GLUCOSE Routine 10/27/2024 11:34 AM EDT Type 2 diabetes mellitus without complication, without long-term current use of insulin ([facility]) CBC WITH AUTO DIFFERENTIAL Routine 10/26/2024 9:49 AM EDT Iron deficiency anemia, unspecified iron deficiency anemia type CALCIUM, IONIZED Routine 10/26/2024 9:49 AM EDT Serum calcium elevated PTH, INTACT WITHOUT CALCIUM Routine 10/26/2024 9:49 AM EDT Serum calcium elevated VITAMIN D,25-OH,TOTAL,IA Routine 10/26/2024 9:49 AM EDT Serum calcium elevated VITAMIN B12/FOLATE, SERUM PANEL Routine 10/26/2024 9:49 AM EDT Serum calcium elevated PROTEIN, TOTAL AND PROTEIN ELECTROPHORESIS Routine 10/26/2024 9:49 AM EDT Iron deficiency anemia, unspecified iron deficiency anemia type IRON AND TOTAL IRON BINDING CAPACITY Routine 10/26/2024 9:49 AM EDT Serum calcium elevated Iron deficiency anemia, unspecified iron deficiency anemia type FERRITIN Routine 10/26/2024 9:49 AM EDT Iron deficiency anemia, unspecified iron deficiency anemia type ALBUMIN, RANDOM URINE W/CREATININE Routine 10/26/2024 9:49 AM EDT Type 2 diabetes mellitus without complication, without long-term current use of insulin (CMS/HCC) COMPREHENSIVE METABOLIC PANEL Routine 10/26/2024 9:49 AM EDT Type 2 diabetes mellitus without complication, without long-term current use of insulin (CMS/HCC) LIPID PANEL, STANDARD Routine 10/26/2024 9:49 AM EDT Mixed hyperlipidemia POCT GLUCOSE Routine 08/25/2024 3:15 PM EST Type 2 diabetes mellitus without complication, without long-term current use of insulin (CMS/HCC) POCT GLYCOSYLATED HEMOGLOBIN (HGB A1C) Routine 08/25/2024 3:12 PM EST Type 2 diabetes mellitus without complication, without long-term current use of insulin (CMS/HCC) HEPATITIS C AB W/REFL TO HCV RNA, QN, PCR Routine 10/09/2022 8:38 AM EST Type 2 diabetes mellitus without complication, without long-term current use of insulin (CMS/HCC) HM COLONOSCOPY Routine 01/10/2018 PANORAMIC RADIOGRAPHIC IMAGE Routine 11/01/2017 12:00 AM EDT PERIODIC ORAL EVALUATION - ESTABLISHED PATIENT Routine 11/01/2017 12:00 AM EDT INTRAORAL - COMPLETE SERIES OF RADIOGRAPHIC IMAGES Routine 07/23/2011 12:00 AM EST from Last 3 Months or Most Recently Relevant to Health Maintenance Results * POCT Glucose (10/27/2024 11:34 AM EDT) Only the most recent of2 resultswithin the time period is included. Glucose Blood, POC 132 60 - 200 mg/dL QC Media Lot # [id number] Lot# Expiration Date , Blood Capillary blood specimen / Unknown 10/27/2024 11:34 AM EDT Claus Weston MD POINT OF CARE TEST EN TER/EDIT ORDERABLES Final Result * Vitamin D, 25-Hydroxy, Total, Immunoassay (10/26/2024 9:49 AM EDT) Vitamin D 25-OH Total 30.7 >30 ng/mL [facility] Comment: Health Based Reference Values*< 20 ??ng/mL ??[id number] ng/mL ??Insufficient> 30 ??ng/mL ??Sufficient*Daxa DESAI. N Engl J Med. 2007;357:266-280There is no well-established upper level of normal vitamin Dlevels. Some laboratories use 50 ng/mL as an upper limit ofnormal. However, toxicity is patient-dependent and may occurat any level. Careful correlation with the patient'spresentation is necessary and, if there is concern forvitamin D toxicity, treatment should be consideredirrespective of the serum level.Care must be taken in interpreting Vitamin D results fromdifferent laboratories and methodologies. ??Published datademonstrated that results from patients undergoinghemodialysis may show a negative bias when tested withvarious automated 25-OH vitamin D assays when compared toLC- MS/MS.When testing samples from patients whose predominant form ofVitamin D is Vitamin D2, such as patients receiving VitaminD2 supplementation, results that are subtherapeutic shouldbe confirmed with another method such as LC-MS/MS. Blood Venous blood specimen / Unknown 10/26/2024 9:49 AM EDT 10/26/2024 11:49 AM EDT us Claus Weston MD LAB BLOOD ORDERABLES Final Result [facility] [address] [place] [phone] * Vitamin B12/Folate, Serum Panel (10/26/2024 9:49 AM EDT) Vitamin B12 354 200 - 900 pg/mL [facility] Comment:NORMAL 200-900 PG/ML INDETERMINATE 160-199 PG/ML DEFICIENT < 160 PG/ML Folate 14.0 > or = 4.0 ng/mL [facility] Comment:Reference Values:> o r = 4.0 ng/mL< 4.0 ng/mL suggests folate deficiency Methotrexate, aminopterin and folinic acid(leucovorin) are chemotherapeutic agents whose molecularstructures are similar to folate; therefore, the Architectfolate assay cannot be used for patients using these drugs. Blood Venous blood specimen / Unknown 10/26/2024 9:49 AM EDT 10/26/2024 11:49 AM EDT Claus Weston MD LAB BLOOD ORDERABLES Final Result Performing Organization Address [facility] Co de Phone Number [facility] [address] [place] [address] [phone] * (ABNORMAL) Albumin, Random Urine W/Creatinine (10/26/2024 9:49 AM EDT) Creatinine, Urine 135.56 mg/dL [facility] Microalbumin Urine 43.0 mg/L [facility] Microalbum Creatinine Ratio Ur 31.7(H) <30 ug/mg cr [facility] Comment:Albumin/Creatinine R atio Reference Ranges: Normal: < 30 ug/mg creatinine Microalbuminuria: 30 - 300 ug/mg creatinineClinical Albuminuria: > 300 ug/mg creatinine Urine (Urine, Random) 10/26/2024 9:49 AM EDT 10/26/2024 11:21 AM EDT Claus Weston MD LAB URINE ORDERABLES Final Result Performing Organization Address [facility] Co de Phone Number [facility] [address] [place] [phone] * (ABNORMAL) CBC auto differential (10/26/2024 9:49 AM EDT) White Blood Count 6.4 4.8 - 10.8 X10*3/uL [facility] Red Blood Count 4.65 4.60 - 5.80 X10*6/uL [facility] Hemoglobin 12.5(L) 14.0 - 18.0 g/dl [facility] Hematocrit 39.2(L) 42.0 - 52.0 % [facility] Mean Corpuscular Volume 84.3 80.0 - 98.0 fL [facility] Mean Corpuscular Hemoglobin 26.9(L) 27.0 - 33.0 pg [facility] Mean Corpuscular HGB Conc 31.9 31.0 - 36.0 g/dl [facility] Red Cell Distribution Width 13.5 11.0 - 16.0 % [facility] Platelet Count 371 160 - 400 X10*3/uL [facility] Mean Platelet Volume 10.3 9.4 - 12.4 fL [facility] Neutrophils Percent Auto 47.9 45 - 73 % [facility] Imm Gran Pct Auto 0.3 0.0 - 0.4 % [facility] Lymphocytes Percent Auto 38.4 20 - 40 % [facility] Monocytes Percent Auto 10.2 2 - 11 % [facility] Eosinophils Percent Auto 1.9 0 - 4 % [facility] Basophils Percent Auto 1.3 0 - 2 % [facility] NRBC Pct Auto 0.0 0.0 - 0.2 /100WBC [facility] Neutrophils Absolute Auto 3.1 2.0 - 8.3 x10*3/uL [facility] Imm Gran Abs Auto 0.02 0.00 - 0.03 X10*3/uL [facility] Lymphocytes Absolute Auto 2.5 1.2 - 4.9 X10*3/uL [facility] Monocytes Absolute Auto 0.7 0.1 - 1.2 X10*3/uL [facility] Eosinophils Absolute Auto 0.1 0.0 - 0.4 X10*3/uL [facility] Basophils Absolute Auto 0.1 0.0 - 0.2 X10*3/uL [facility] NRBC Abs Auto 0.000 0.0 - 0.012 X10*3/uL [facility] Blood Venous blood specimen / Unknown 10/26/2024 9:49 AM EDT 10/26/2024 11:49 AM EDT Claus Weston MD LAB BLOOD ORDERABLES Final Result Performing Organization Address [facility] Co de Phone Number [facility] [address] [place] [phone] * Iron And Total Iron Binding Capacity (10/26/2024 9:49 AM EDT) Pathologist [facility] Iron 75 45 - 160 mcg/dL [facility] Total Iron Binding Capacity 243 228 - 428 mcg/dL [facility] Percent Iron Saturation 31 15 - 50 % [facility] Unsaturated Iron Binding 168 ug/dL [facility] Blood Venous blood specimen / Unknown 10/26/2024 9:49 AM EDT 10/26/2024 11:49 AM EDT Claus Weston MD LAB BLOOD ORDERABLES Final Result Performing Organization Address [facility] Co de Phone Number [facility] [address] [place] [phone] * Protein, Total and Protein??Electrophoresis (10/26/2024 9:49 AM EDT) Prot Elec - Total Protein 7.2 6.1 - 8.1 g/dL [facility] Prot Elec - Albumin 4.4 3.8 - 4.8 g/dL [facility] Prot Elec - Alpha1 0.3 0.2 - 0.3 g/dL [facility] Prot Elec - Alpha2 0.9 0.5 - 0.9 g/dL [facility] Prot Elec - Beta 1 0.4 0.4 - 0.6 g/dL [facility] Prot Elec - Beta 2 0.4 0.2 - 0.5 g/dL [facility] Prot Elec - Gamma 0.8 0.8 - 1.7 g/dL [facility] PES - Abn Protein Band 1 TNP [facility] PES-Abn Protein Band 2 [facility] P[facility]-Ab[facility] Protein Band 3 [facility] Prot Elec - Interpretation SEE NOTE [facility] Comment:Normal Serum Protein Electrophoresis Pattern.No abnormal protein bands (M-protein) detected.THIS TEST WAS PERFORMED AT:[facility] [place] [phone] ARIAS MD Blood Venous blood specimen / Unknown 10/26/2024 9:49 AM EDT 10/26/2024 11:49 AM EDT Claus Weston MD LAB BLOOD ORDERABLES Final Result Performing Organization Address [facility]/ZIP Co de Phone Number [facility] [address] [place] [phone] * PTH, Intact Without Calcium (10/26/2024 9:49 AM EDT) Parathyroid Hormone, Intact 35.2 8.7 - 77.1 pg/mL [facility] Blood Venous blood specimen / Unknown 10/26/2024 9:49 AM EDT 10/26/2024 11:49 AM EDT us Claus Weston MD LAB BLOOD ORDERABLES Final Result Performing Organization Address City/[facility]/ZIP Co de Phone Number [facility] [address] [place] [phone] * (ABNORMAL) Ferritin (10/26/2024 9:49 AM EDT) Ferritin 353(H) 20 - 250 ng/mL [facility] Blood Venous blood specimen / Unknown 10/26/2024 9:49 AM EDT 10/26/2024 11:49 AM EDT us Claus Weston MD LAB BLOOD ORDERABLES Final Result [facility] [address] [place] [phone] * Calcium, Ionized (10/26/2024 9:49 AM EDT) Calcium, Ionized 5.1 4.7 - 5.5 mg/dL [facility] Comment:THIS TEST WAS PERFOR MED AT:[facility] [place] [phone] ARIAS MD Blood Venous blood specimen / Unknown 10/26/2024 9:49 AM EDT 10/26/2024 11:49 AM EDT Claus Weston MD LAB BLOOD ORDERABLES Final Result [facility] [address] [place] [phone] * (ABNORMAL) Lipid Panel, Standard (10/26/2024 9:49 AM EDT) Triglycerides 199(H) <150 mg/dL [facility] Comment:Desirable Triglyceri de: less than 150 mg/dLBorderline High Triglyceride 150-199 mg/dLHigh Triglyceride: 200-499 mg/dLVery High Triglyceride: greater than or equal to 5OO mg/dL Cholesterol 206(H) <200 mg/dL [facility] Comment:Desirable Cholestero l: less than 200 mg/dLBorderline High Cholesterol: 200-239 mg/dLHigh Cholesterol: greater than 239 mg/dL LDL Cholesterol Calculated 133(H) <100 mg/dL [facility] Comment:Desirable LDL: less than 100 mg/dLNear Optimal/Above Optimal LDL: 110- 129 mg/dLBorderline High LDL: 130-159 mg/dLHigh LDL: 160-189 mg/dLVery High LDL: greater than or equal to 190 mg/dL HDL Cholesterol 34(L) >40 mg/dL [facility] Comment:Desirable HDL: great er than 40 mg/dL Note: This HDL assay may give artificially low results in patients with liver disease. Blood Venous blood specimen / Unknown 10/26/2024 9:49 AM EDT 10/26/2024 11:49 AM EDT Claus Weston MD LAB BLOOD ORDERABLES Final Result [facility] [address] [place] [phone] * (ABNORMAL) Comprehensive Metabolic Panel (10/26/2024 9:49 AM EDT) Sodium 140 135 - 145 mmol/L [facility] Potassium 4.5 3.3 - 5.1 mmol/L [facility] Chloride 104 96 - 108 mmol/L [facility] Carbon Dioxide 28 22 - 29 mmol/L [facility] Anion Gap 13 12 - 20 [facility] Urea Nitrogen (BUN) 22(H) 9 - 16 mg/dL [facility] Creatinine, Serum 1.13 0.5 - 1.4 mg/dL [facility] Estimated Glomerular Filt Rate >60 [facility] Comment:Chronic Kidney Disea se: Estimated GFR < 60 mL/min/1.26q6Pwblto Kidney Disease: Estimated GFR < 15 mL/min/1.73m2 Glucose 282(H) 60 - 115 mg/dL [facility] Calcium 9.6 8.4 - 10.2 mg/dL [facility] Bilirubin, Total 0.5 0.0 - 1.0 mg/dL [facility] Aspartate Amino Transferase 17 5 - 37 U/L [facility] Alanine Aminotransferase 27 0 - 40 U/L [facility] Total Protein 7.5 6.5 - 8.0 g/dL [facility] Albumin Level 4.4 3.5 - 5.0 g/dL [facility] Alkaline Phosphatase 64 39 - 117 U/L [facility] Blood Venous blood specimen / Unknown 10/26/2024 9:49 AM EDT 10/26/2024 11:49 AM EDT us Claus Chairez Enrico MD LAB BLOOD ORDERABLES Final Result [facility] [address] [place] [phone] * (ABNORMAL) POCT glycosylated hemoglobin (Hgb A1c) (08/25/2024 3:12 PM EST) Hemoglobin A1C 9.4(A) 4.0 - 6.0 % QC Media Lot # [id number] Lot# Expiration Date 387 Blood Capillary blood specimen / Unknown 08/25/2024 3:12 PM EST Result [facility] Claus Weston MD POINT OF CARE TEST EN TER/EDIT ORDERABLES Final Result * Hepatitis C Antibody with Reflex to HCV, RNA, Quantitative, Real-Time PCR (10/09/2022 8:38 AM EST) Hepatitis C Antibody NON-REACT GALLO NON-REACT GALLO [facility] Index <0.02 <1.00 [facility] Comment: HCV antibody was non-reactive. There is no laboratory evidence of HCV infection. In most cases, no further action is required. However, if recent HCV exposure is suspected, a test for HCV RNA (test code 39039) is suggested. For additional information please refer to http://[email or web address]/faq/IVN97j3 (This link is being provided for informational/ educational purposes only.) Blood Venous blood specimen / Unknown 10/09/2022 8:38 AM EST 10/09/2022 8:38 AM EST Narrative [facility] - 10/10/2022 6:28 PM EST FASTING:YES FASTING: YES Result [facility] us Claus Weston MD LAB BLOOD ORDERABLES Final Result [facility] [address], [place] [address] [employer] [address] [facility], ([address]) [place] [address] * Colonoscopy (01/10/2018) Colonoscopy Normal Normal 01/10/2018 Tara Rene - 01/10/2018 4:03 PM EDT Recommended 10 year follow up us Historical Provider HEALTH MAINTENANCE Edited Result - Final from Last 3 Months or Most Recently Relevant to Health Maintenance Insurance [place] [phone] [facility] STANDARD HSN PARTIAL * Guarantor: Denis Duran Account Type Relation to Patient Date of Phone Billing Address Personal/Family Self [address] Eliud Salvador [place] Care Teams Squad Leader Relationship Specialty Start Date End Date Claus Berg MD [address] [place] [address] KEYSHA Salvador PCP - General Internal Medicine 05/12/14
== END 2024-11-11 12:30 | disposition home or self-care (01) ==
PROVIDERS: Emergency Provider Emergency Medicine; PCP Internal Medicine
DX: J34.0 Abscess, furuncle and carbuncle of nose (principal); Z79.899 Other long term (current) drug therapy
CPT/HCPCS: 99282; 99283

== ENCOUNTER → 2024-12-04 09:30 | Outpatient (BNV) | payer MEDICARE, MEDICAID, SELFPAY | PROVIDERS: PCP Internal Medicine; Referring Provider Internal Medicine; Visit Provider Internal Medicine | DX: D64.9 Anemia, unspecified (principal) | CPT/HCPCS: 99203 ==

== ENCOUNTER 2024-12-11 14:05 | Emergency (ER) | payer MEDICARE, MEDICAID, SELFPAY ==
--- NOTE | 2024-12-11 14:25 | ED_ITS ---
HPI - Abdominal Pain General Stated Complaint: Lower Abd Pain Related Data Home Medications ?Medication ?Instructions ?Recorded ?Confirmed amlodipine 5 mg tablet 5 mg PO DAILY 08/23/20 blood sugar diagnostic #10 ea 08/23/20 lancets 28 gauge #100 ea 08/23/20 lisinopril 20 mg tablet 20 mg PO DAILY 08/23/20 metformin 1,000 mg tablet 1,000 mg PO 08/23/20 morphine 15 mg tablet,extended mg PO 08/23/20 release Previous Rx's ?Medication ?Instructions ?Recorded pentoxifylline 400 mg 400 mg PO BID 90 days #180 tabs 08/23/20 tablet,extended release vitamin E (dl, acetate) 450 mg 450 mg PO DAILY #90 caps 08/23/20 (1,000 unit) capsule cyclobenzaprine 10 mg tablet 10 mg PO Q8H #14 tabs 09/05/22 ketorolac 10 mg tablet 10 mg PO Q8H #14 tabs 09/05/22 acetaminophen 500 mg tablet 500 mg PO Q6H PRN fever or pain 09/13/22 (Tylenol Extra Strength) #14 tabs cyclobenzaprine 5 mg tablet 5 mg PO Q8H PRN pain (scale score 09/13/22 7-10) 5 days #14 tabs cephalexin 500 mg capsule 500 mg PO QID 10 days #40 caps 05/23/23 doxycycline hyclate 100 mg tablet 100 mg PO BID #20 tabs 05/23/23 cephalexin 500 mg capsule 500 mg PO QID #28 caps 11/11/24 mupirocin 2 % topical ointment 1 appl topical BID 1 week #22 grams 11/11/24 Allergies Allergy/AdvReac Type Severity Reaction Status Date / Time No Known Allergies Allergy Verified 11/11/24 12:08 [No Known Allergies*] [facility] Past Medical History Medical History (Updated 12/04/24 @ 17:22 by Rose Mary Carter MD) HTN (hypertension) Diabetes Social History Social History (Updated 12/04/24 @ 10:27 by Jose Armando Tom) Household Members: None Alcohol intake: current Alcohol intake frequency: a few times a week Patient Tobacco Use Status: Former Tobacco user Tobacco use type: Cigarette service: No Current occupational status: disabled Discharge Plan Discharge Prescriptions: No Action cyclobenzaprine 5 mg tablet 5 mg PO Q8H PRN (Reason: pain (scale score 7-10)) 5 Days Qty: 14 0RF acetaminophen [Tylenol Extra Strength] 500 mg tablet 500 mg PO Q6H PRN (Reason: fever or pain) Qty: 14 0RF cyclobenzaprine 10 mg tablet 10 mg PO Q8H Qty: 14 0RF ketorolac 10 mg tablet 10 mg PO Q8H Qty: 14 0RF Rx Instructions: first dose given in the ED by IM and patient tolerated well cephalexin 500 mg capsule 500 mg PO QID 10 Days Qty: 40 0RF doxycycline hyclate 100 mg tablet 100 mg PO BID Qty: 20 0RF mupirocin 2 % ointment 1 appl topical BID 7 Days Qty: 22 0RF cephalexin 500 mg capsule 500 mg PO QID Qty: 28 0RF morphine 15 mg tablet extended release PO amlodipine 5 mg tablet 5 mg PO DAILY (DME) FreeStyle Lite Strips Strip See Rx Instructions Not Applicable DAILY Qty: 10 Rx Instructions: As directed (DME) lancets 28 gauge misc See Rx Instructions topical DAILY Qty: 100 Rx Instructions: As directed lisinopril 20 mg tablet 20 mg PO DAILY metformin 1,000 mg tablet 1,000 mg PO pentoxifylline 400 mg tablet extended release 400 mg PO BID 90 Days Qty: 180 1RF Rx Instructions: administer with meals vitamin E (dl, acetate) 450 mg (1,000 unit) capsule 450 mg PO DAILY Qty: 90 1RF Print Language: Angolan
--- OUTSIDE RECORDS SUMMARY | 2024-12-11 15:01 | XMS_ITS | Clinical Summary ---
Author Organization [employer] Address [address] [facility] 7[address] [place] [address] Care Team Providers Care Classification Analyst Name Role Phone Claus Berg MD Primary Care Provide r Allergies No known active allergies Medications glucose blood (FREESTYLE LITE) test strip apply 1 by to skin route every day 06/23/20 20 Active sildenafil (Viagra) 100 MG tablet take 1 tablet by oral route every day as needed approximately 1 hour before sexual activity 08/09/19 21 Active ketorolac (Acular) 0.5 % ophthalmic solution INSTILL 1 DROP INTO AFFECTED EYE THREE TIMES A DAY DIRECTED STARTING 2 DAYS PRIOR TO EACH SURGERY. TAPER DIRECTED. 05/09/20 22 Active tiZANidine (Zanaflex) 2 MG tabletIndications: Chronic midline low back pain without sciatica Take 1 tablet (2 mg) by mouth every 8 (eight) hours if needed for muscle spasms. 30 tablet 10/02/19 23 Active Acetaminophen Extra Strength 500 MG tablet TAKE 1 TABLET BY MOUTH EVERY 6 HOURS NEEDED FOR FEVER OR PAIN 09/13/19 23 Active morphine CR (MS Contin) 15 MG 12 hr tabletIndications: Chronic midline low back pain without sciatica Take 1 tablet (15 mg) by mouth if needed each day for severe pain. Do not crush, chew, or split. 7 tablet 06/08/20 24 Active metFORMIN (Glucophage) 1000 MG tablet TAKE 1 TABLET BY MOUTH TWICE DAILY WITH THE MORNING AND EVENING MEAL 180 tablet 1 08/04/20 24 Active amLODIPine (Norvasc) 5 MG tabletIndications: Essential hypertension Take 1 tablet (5 mg) by mouth Once per day. 90 tablet 1 08/25/19 Active lisinopril 20 MG tabletIndications: Essential hypertension TAKE 1 TABLET BY MOUTH EVERY DAY 90 tablet 1 08/25/19 Active Continuous Glucose Nuclear Technologist (FreeStyle Arnoldo 2 [place]) deviceIndications: Type 2 diabetes mellitus without complication, without long-term current use of insulin ([facility]) Scan sensor every 8 hours 1 each 3 08/25/19 Active Continuous Glucose Sensor (FreeStyle Arnoldo 2 Sensor) miscIndications:Ty pe 2 diabetes mellitus without complication, without long-term current use of insulin ([facility]) Apply 1 sensor every 14 days 2 each 3 08/25/19 Active rosuvastatin (Crestor) 10 MG tabletIndications: Mixed hyperlipidemia Take 1 tablet (10 mg) by mouth Once per day. 30 tablet 6 10/28/19 026 Active Dulaglutide (Trulicity) 0.75 MG/0.5ML solution auto-injectorIndic ations:Type 2 diabetes mellitus without complication, without long-term current use of insulin ([facility]) Inject 0.75 mg under the skin 1 (one) time per week. 0.5 mL 6 10/28/19 Active Active Problems Problem Noted Date Diagnosed Date [...] ?? LDL-C is now calculated using the Paul-Davis calculation, which is a validated novel method providing better accuracy than the Friedewald equation in the estimation of LDL-C. Paul SHERMAN et al. PACO. 2013;310(24): 1203-3720 (http://education.[employer]/faq/VOC485) Chol/HDLC Ratio <5.0 (calc) 6.1??High?? 5.4??High?? 4.9 [...] a PRN basis. Pt was seen at [facility] recently with c/o acute on chronic back pain Pt already scheduled to go to [facility] 12/20/2023 Assessment & Plan (10/02/2022 [...] much unchanged. I Patient was seen at [facility] in 2 different ocassions. Exam today suggestive of muscle spasm Have been prescribing MS contin 15 mg po daily and on a PRN basis. Interested in seeing a special agent fbi I have added a muscle relaxant today [...] Pt declined to come and see our clinical document improvement educator. Did not want to Inject Trulicity. [...] Pt declined to come and see our clinical document improvement educator. Did not want to Inject Trulicity. [...] Pt declined to come and see our clinical document improvement educator. Did not want to Inject Trulicity [...] Pt declined to come and see our clinical document improvement educator. Did not want to Inject Trulicity [...] Pt declined to come and see our clinical document improvement educator. Did not want to Inject Trulicity Previously started on by Kristian Lopez ANP Eye exam , pt referred [...] Description 10/27/2024 11:30 AM EDT Office Visit [facility] [place] [address] Claus Berg MD Anemia due to other cause, not classified (Primary Dx); Type 2 diabetes mellitus without complication, without long-term current use of insulin ([facility]); Mixed hyperlipidemia; Overweight (BMI 25.0-29.9); Dietary counseling; Exercise counseling 10/27/2024 Travel 10/15/[address] [address] Yessenia Chicas RNzig zag stitcher 10/14/[address] [address] Claus Berg MD Chart Prep 10/06/2024 Orders Only [address] [address] Claus Berg MD Iron deficiency anemia, unspecified iron deficiency anemia type (Primary Dx) 10/05/[address] [address] Yessenia Chicas, RN Results 10/05/2024 Orders Only [address] [address] Claus Berg MD Serum calcium elevated (Primary Dx); Iron deficiency anemia, unspecified iron deficiency anemia type 10/05/2024 Orders Only [address] [address] Claus Berg MD Serum calcium elevated (Primary Dx); Iron deficiency anemia, unspecified iron deficiency anemia type from Last 3 Months Immunizations Name Administration [...] your housing situation today? I have lorene martinez 12/12/[address] you li [...] Description 01/28/2025 1:15 PM EDT Office Visit [facility] [address] [place] [address] Claus Berg MD [address] [place] [address] 03/24/2025 11:00 AM EDT Office Visit [facility] [address] [place] [address] Winston, Yue, OD [address] [place] [address] Health Maintenance Due Date Last Done Comments [...] complication, without long-term current use of insulin ([facility]) CBC WITH AUTO DIFFERENTIAL Routine 10/26/2024 9:49 [...] 10/26/2024 9:49 AM EDT Mixed hyperlipidemia POCT GLYCOSYLATED HEMOGLOBIN (HGB A1C) Routine 08/25/2024 [...] * POCT Glucose (10/27/2024 11:34 AM EDT) Glucose Blood, POC 132 60 - 200 mg/dL QC Media Lot # [id number] Lot# Expiration Date [id number] Blood Capillary blood specimen / Unknown 10/27/2024 11:34 AM EDT Claus Weston MD POINT OF CARE TEST EN TER/EDIT ORDERABLES Final Result * Vitamin D, 25-Hydroxy, Total, Immunoassay (10/26/2024 9:49 AM EDT) Vitamin D 25-OH Total 30.7 >30 ng/mL [facility] Comment: Health Based Reference Values*< 20 ??ng/mL ??Iijzacsiu88-34 ng/mL ??Insufficient> 30 ??ng/mL ??Sufficient*Daxa DESAI. N [...] BLOOD ORDERABLES Final Result Performing Organization Address [facility]/ZIP Co de Phone Number [facility] [address] [place] [phone] * Vitamin B12/Folate, Serum Panel (10/26/2024 9:49 AM EDT) Vitamin B12 354 200 - 900 pg/mL [facility] Comment:NORMAL 200-900 PG/ML INDETERMINATE 160-199 PG/ML DEFICIENT < 160 PG/ML Folate 14.0 > or = 4.0 ng/mL [facility] Comment:Reference Values:> o r = 4.0 [...] BLOOD ORDERABLES Final Result Performing Organization Address City/[facility] Co de Phone Number [facility] [address] [place] [phone] * (ABNORMAL) Albumin, Random Urine W/Creatinine (10/26/2024 9:49 AM EDT) Creatinine, Urine 135.56 mg/dL [facility] Microalbumin Urine 43.0 mg/L H [facility] Microalbum Creatinine Ratio Ur 31.7(H) <30 ug/mg cr [facility] Comment:Albumin/Creatinine R atio Reference Ranges: Normal: < 30 ug/mg creatinine Microalbuminuria: 30 - 300 ug/mg creatinineClinical Albuminuria: > 300 ug/mg creatinine Urine (Urine, Random) 10/26/2024 9:49 AM EDT 10/26/2024 11:21 AM EDT us Claus Weston MD LAB URINE ORDERABLES Final Result [facility] [address] [place] [phone] [phone] * (ABNORMAL) CBC auto differential (10/26/2024 9:49 AM EDT) White Blood Count 6.4 4.8 - 10.8 X10*3/uL [facility] Red Blood Count 4.65 4.60 - 5.80 X10*6/uL [facility] Hemoglobin 12.5(L) 14.0 - 18.0 g/dl [facility] Hematocrit 39.2(L) 42.0 - 52.0 % [facility] Mean Corpuscular Volume 84.3 80.0 - 98.0 fL [facility] Mean Corpuscular Hemoglobin 26.9(L) 27.0 - 33.0 pg [facility] Mean Corpuscular HGB Conc 31.9 31.0 - 36.0 g/dl [facility] Red Cell Distribution Width 13.5 11.0 - 16.0 % [facility] Platelet Count 371 160 - 400 X10*3/uL [facility] Mean Platelet Volume 10.3 9.4 - 12.4 fL [facility] Neutrophils Percent Auto 47.9 45 - 73 % [facility] Imm Gran Pct Auto 0.3 0.0 - 0.4 % [facility] Lymphocytes Percent Auto 38.4 20 - 40 % [facility] Monocytes Percent Auto 10.2 2 - 11 % [facility] Eosinophils Percent Auto 1.9 0 - 4 % [facility] Basophils Percent Auto 1.3 0 - 2 % [facility] NRBC Pct Auto 0.0 0.0 - 0.2 /100WBC [facility] Neutrophils Absolute Auto 3.1 2.0 - 8.3 x10*3/uL [facility] Imm Gran Abs Auto 0.02 0.00 - 0.03 X10*3/uL [facility] Lymphocytes Absolute Auto 2.5 1.2 - 4.9 X10*3/uL [facility] Monocytes Absolute Auto 0.7 0.1 - 1.2 X10*3/uL [facility] Eosinophils Absolute Auto 0.1 0.0 - 0.4 X10*3/uL [facility] Basophils Absolute Auto 0.1 0.0 - 0.2 X10*3/uL [facility] NRBC Abs Auto 0.000 0.0 - 0.012 X10*3/uL [facility] Blood Venous blood specimen / Unknown 10/26/2024 9:49 AM EDT 10/26/2024 11:49 AM EDT Claus Weston MD LAB BLOOD ORDERABLES Final Result [facility] [address] [place] [phone] * Iron And Total Iron Binding Capacity (10/26/2024 9:49 AM EDT) Iron 75 45 - 160 mcg/dL [facility] Total Iron Binding Capacity 243 228 - 428 mcg/dL [facility] Percent Iron Saturation 31 15 - 50 % [facility] Unsaturated Iron Binding 168 ug/dL [facility] Blood Venous blood specimen / Unknown 10/26/2024 9:49 AM EDT 10/26/2024 11:49 AM EDT Claus Weston MD LAB BLOOD ORDERABLES Final Result Performing Organization Address City/[facility]/ZIP Co de Phone Number [facility] [address] [place] [phone] * Protein, Total and Protein??Electrophoresis (10/26/2024 9:49 AM EDT) Prot Elec - Total Protein 7.2 6.1 - 8.1 g/dL [facility] Prot Elec - Albumin 4.4 3.8 - 4.8 g/dL [facility] Prot Elec - Alpha1 0.3 0.2 - 0.3 g/dL [facility] Prot Elec - Alpha2 0.9 0.5 - 0.9 g/dL [facility] Prot Elec - Beta 1 0.4 0.4 - 0.6 g/dL [facility] Prot Elec - Beta 2 0.4 0.2 - 0.5 g/dL [facility] Prot Elec - Gamma 0.8 0.8 - 1.7 g/dL [facility] PES - Abn Protein Band 1 TNP [facility] PES-Abn Protein Band 2 [facility] PES-Abn Protein Band 3 [facility] Prot Elec - Interpretation SEE NOTE [facility] Comment:Normal Serum Protein Electrophoresis Pattern.No abnormal protein bands (M-protein) detected.THIS TEST WAS PERFORMED AT:[employer] [address] [phone] ARIAS MD Blood Venous blood specimen / Unknown 10/26/2024 9:49 AM EDT 10/26/2024 11:49 AM EDT Claus Weston MD LAB BLOOD ORDERABLES Final Result [facility] [address] [place] [phone] [phone] * PTH, Intact Without Calcium (10/26/2024 9:49 AM EDT) Parathyroid Hormone, Intact 35.2 8.7 - 77.1 pg/mL [facility] Blood Venous blood specimen / Unknown 10/26/2024 9:49 AM EDT 10/26/2024 11:49 AM EDT Claus Weston MD LAB BLOOD ORDERABLES Final Result Performing Organization Address [facility]/ZIP Co de Phone Number [facility] [address] [place] [phone] * (ABNORMAL) Ferritin (10/26/2024 9:49 AM EDT) Ferritin 353(H) 20 - 250 ng/mL [facility] Blood Venous blood specimen / Unknown 10/26/2024 9:49 AM EDT 10/26/2024 11:49 AM EDT Claus Weston MD LAB BLOOD ORDERABLES Final Result Performing Organization Address [facility] Co de Phone Number [facility] [address] [place] [phone] * Calcium, Ionized (10/26/2024 9:49 AM EDT) Calcium, Ionized 5.1 4.7 - 5.5 mg/dL [facility] Comment:THIS TEST WAS PERFOR MED AT:[facility] [place] [phone] ARIAS MD Blood Venous blood specimen / Unknown 10/26/2024 9:49 AM EDT 10/26/2024 11:49 AM EDT Claus Weston MD LAB BLOOD ORDERABLES Final Result Performing Organization Address [facility]/ZIP Co de Phone Number [facility] [address] [place] [phone] * (ABNORMAL) Lipid Panel, Standard (10/26/2024 9:49 AM EDT) Triglycerides 199(H) <150 mg/dL [facility] Comment:Desirable Triglyceri de: less than 150 mg/dLBorderline High Triglyceride 150-199 mg/dLHigh Triglyceride: 200-499 mg/dLVery High Triglyceride: greater than or equal to 5OO mg/dL Cholesterol 206(H) <200 mg/dL [facility] Comment:Desirable Cholestero l: less than 200 mg/dLBorderline High Cholesterol: 200-239 mg/dLHigh Cholesterol: greater than 239 mg/dL LDL Cholesterol Calculated 133(H) <100 mg/dL [facility] Comment:Desirable LDL: less than 100 mg/dLNear Optimal/Above Optimal LDL: 110- 129 mg/dLBorderline High LDL: 130-159 mg/dLHigh LDL: 160-189 mg/dLVery High LDL: greater than or equal to 190 mg/dL HDL Cholesterol 34(L) >40 mg/dL [facility] Comment:Desirable HDL: great er than 40 mg/dL Note: This HDL assay may give artificially low results in patients with liver disease. Blood Venous blood specimen / Unknown 10/26/2024 9:49 AM EDT 10/26/2024 11:49 AM EDT us Claus Weston MD LAB BLOOD ORDERABLES Final Result [facility] [address] [place] [phone] * (ABNORMAL) Comprehensive Metabolic Panel (10/26/2024 9:49 AM EDT) Sodium 140 135 - 145 mmol/L [facility] Potassium 4.5 3.3 - 5.1 mmol/L [facility] Chloride 104 96 - 108 mmol/L [facility] Carbon Dioxide 28 22 - 29 mmol/L [facility] Anion Gap 13 12 - 20 [facility] Urea Nitrogen (BUN) 22(H) 9 - 16 mg/dL [facility] Creatinine, Serum 1.13 0.5 - 1.4 mg/dL [facility] Estimated Glomerular Filt Rate >60 [facility] Comment:Chronic Kidney Disea se: Estimated GFR < 60 mL/min/1.05f5Pbrdkp Kidney Disease: Estimated GFR < 15 mL/min/1.73m2 Glucose 282(H) 60 - 115 mg/dL [facility] Calcium 9.6 8.4 - 10.2 mg/dL [facility] Bilirubin, Total 0.5 0.0 - 1.0 mg/dL [facility] Aspartate Amino Transferase 17 5 - 37 U/L [facility] Alanine Aminotransferase 27 0 - 40 U/L [facility] Total Protein 7.5 6.5 - 8.0 g/dL [facility] Albumin Level 4.4 3.5 - 5.0 g/dL [facility] Alkaline Phosphatase 64 39 - 117 U/L [facility] Blood Venous blood specimen / Unknown 10/26/2024 9:49 AM EDT 10/26/2024 11:49 AM EDT Claus Weston MD LAB BLOOD ORDERABLES Final Result Performing Organization Address City/State/[facility] Co de Phone Number [facility] [address] [place] [phone] * (ABNORMAL) POCT glycosylated hemoglobin (Hgb A1c) (08/25/2024 3:12 PM EST) [facility] Hemoglobin A1C 9.4(A) 4.0 - 6.0 % QC Media Lot # [id number] Lot# Expiration Date ,653 Blood Capillary blood specimen / Unknown 08/25/2024 3:12 PM EST Claus Weston MD POINT OF CARE TEST EN TER/EDIT ORDERABLES Final Result * Hepatitis C Antibody with Reflex to HCV, RNA, Quantitative, Real-Time PCR (10/09/2022 8:38 AM EST) Pathologist [facility] Hepatitis C Antibody NON-REACT GALLO NON-REACT GALLO [employer] [place] [facility] Index <0.02 <1.00 [facility] [employer] [place] [facility] Comment: HCV antibody was non-reactive. There is no laboratory evidence of HCV infection. In most cases, no further action is required. However, if recent HCV exposure is suspected, a test for HCV RNA (test code 30981) is suggested. For additional information please refer to http://education.[employer]/faq/ZNU48s3 (This link is being provided for informational/ educational purposes only.) Blood Venous blood specimen / Unknown 10/09/2022 8:38 AM EST 10/09/2022 8:38 AM EST Narrative [facility] - 10/10/2022 6:28 PM EST FASTING:YES FASTING: YES Claus Weston MD LAB BLOOD ORDERABLES Final Result [facility] [address] [facility], [place] [phone] [facility] [address], ([address]) [place] [address] * Colonoscopy (01/10/2018) Colonoscopy Normal Normal 01/10/2018 Tara Rene - 01/10/2018 4:03 PM EDT Recommended 10 year follow up Historical Provider HEALTH MAINTENANCE Edited Result - Final from Last 3 Months or Most Recently Relevant to Health Maintenance Insurance [facility]IC[facility] HSN PARTIAL Care Teams Classification Analyst Relationship Specialty Start Date End Date Claus Berg MD [address] [place] [address] KEYSHA Salvador [id number] PCP - General Internal Medicine 05/12/14
--- OUTSIDE RECORDS SUMMARY | 2024-12-11 15:01 | XMS_ITS | Clinical Summary ---
Author Organization [employer] [facility] ity Address [address] [place] [address] Care Team Providers Care Smeller Name Role Phone Unavailable Primary Care Provider [...] - 2023-2 5 season) 2024 Influenza Vaccine (Season Ended) 2025 RSV Immunization Adult Patie nts (1 - [...]
--- OUTSIDE RECORDS SUMMARY | 2024-12-11 15:01 | XMS_ITS | Encounter Summary ---
Author Organization [employer] Address [address] [place] [address] [address] [place] [address] Care Team Providers Care Obstetrician Gynecologist Name Role Phone Claus Berg MD Primary Care Provide r Encounter Details Date Type Department Care Team (Late st Contact Info) Description 12/12/2022 Abstract [facility] [address] [place], [place] [phone] Claus Berg MD [address] [place], [place] [phone] Social History Tobacco Use Types Packs/Day Years [...] Description 01/28/2025 1:15 PM EDT Office Visit [facility] [address] [place], [place] [phone] Claus Berg MD [address] [place], [place] [phone] 03/24/2025 11:00 AM EDT Office Visit [facility] [address] [place] [address] Yue Montero, OD [address] [place] [address] documented as of this encounter Procedures Procedure Name Priority Date/Time Associated Diagnosis Comments COLONOSCOPY Routine 01/10/2018 documented in this encounter Results * Hm Colonoscopy (01/10/2018) Colonoscopy Normal Normal 01/10/2018 Narrative Tara Britton - 01/10/2018 4:03 PM EDT Recommended 10 year follow up us Historical Provider HEALTH MAINTENANCE Edited Result - Final documented in this encounter Visit Diagnoses Not on filedocumented in this encounter Additional Health Concerns Assessment Noted Time PHQ-9 Depression Total Score: 0 10/02/19 23 10:50 AM EST documented as of this encounter Care Teams Obstetrician Gynecologist Relationship Specialty Start Date End Date Claus Berg MD [address] [place] [address] PCP - General Internal Medicine 05/12/14 documented as of this encounter
== END 2024-12-11 15:05 | disposition left against medical advice (07) ==
PROVIDERS: Emergency Provider Emergency Medicine; PCP Internal Medicine
DX: R10.30 Lower abdominal pain, unspecified (principal); Z53.21 Procedure and treatment not carried out due to patient leaving prior to being seen by health care provider

== ENCOUNTER 2025-03-10 09:00 | Emergency (ER) | payer MEDICARE, MEDICAID, SELFPAY ==
[2025-03-10 09:09] VITALS: BP 157/70; PULSE 78; RESP 18; TEMP 36.6; O2SAT 99; BMI 29.5
--- OUTSIDE RECORDS SUMMARY | 2025-03-10 11:17 | XMS_ITS | Clinical Summary ---
Author Organization [employer] Address [address] [facility] [address] [place] [address] Care Team Providers Care Needle Punch Operator Name Role Phone Claus Berg MD [...] or split. 7 tablet 06/08/20 24 Active lisinopril 20 MG tabletIndications: Essential hypertension TAKE 1 TABLET BY MOUTH EVERY DAY 90 tablet 1 08/25/19 25 Active Continuous Glucose Post Office Clerk (FreeStyle Arnoldo 2 Novi) deviceIndications: Type 2 diabetes mellitus without complication, without long-term current use of insulin ([facility]) Scan sensor every 8 hours 1 each 3 08/25/19 Active Continuous Glucose Sensor (FreeStyle Arnoldo 2 Sensor) miscIndications:Ty pe 2 diabetes mellitus without complication, without long-term current use of insulin ([facility]) Apply 1 sensor every 14 days 2 each 3 08/25/19 Active rosuvastatin (Crestor) 10 MG tabletIndications: Mixed hyperlipidemia Take 1 tablet (10 mg) by mouth Once per day. 30 tablet 6 10/28/19 026 Active Dulaglutide (Trulicity) 0.75 MG/0.5ML solution auto-injectorIndic ations:Type 2 diabetes mellitus without complication, without long-term current use of insulin ([facility]) Inject 0.75 mg under the skin 1 (one) time per week. 0.5 mL 10/28/19 Active metFORMIN (Glucophage) 1000 MG tablet TAKE 1 TABLET BY MOUTH TWICE DAILY WITH THE MORNING AND EVENING MEAL 180 tablet 1 02/03/20 Active amLODIPine (Norvasc) 5 MG tabletIndications: Essential hypertension TAKE 1 TABLET(5 MG) BY MOUTH DAILY 90 tablet 1 02/03/20 Active Active Problems Problem Noted Date Diagnosed [...] yr ago (02/16/20) Cholesterol, Total <200 mg/dL 227 High 209 High 202 High 241 High HDL Cholesterol > OR = 40 mg/dL 37 Low 39 Low 41 41 Triglycerides <150 mg/dL 411 High 223 High CM 403 High CM 228 High CM Comment: If a non-fasting specimen was collected, consider repeat triglyceride testing on a fasting specimen if clinically indicated. Chester et al. J. of Clin. Lipidol. 2015;9:129-169. LDL Cholesterol 134 High R, CM SEE COMMENT R, CM 161 High R, CM Comment: LDL cholesterol not calculated. Triglyceride levels greater than 400 mg/dL invalidate calculated LDL results. Reference range: <100 Desirable range <100 mg/dL for primary prevention; <70 mg/dL for patients with CHD or diabetic patients with > or = 2 CHD risk factors. LDL-C is now calculated using the Umesh calculation, which is a validated novel method providing better accuracy than the Friedewald equation in the estimation of LDL-C. Paul SHERMAN et al. PACO. 2013;310(19): 8335-5467 (http://education.[employer].com/faq/GRI375) Chol/HDLC Ratio <5.0 (calc) 6.1 High 5.4 High 4.9 5.9 High Non-HDL Cholesterol <130 mg/dL (calc) 190 High 170 High CM 161 High CM 200 High CM He is supposed to be on [...] a PRN basis. Pt was seen at [facility] recently with c/o acute on chronic back pain Pt already scheduled to go to [facility] 12/20/2023 Assessment & Plan (10/02/2022 [...] much unchanged. I Patient was seen at [facility] in 2 different ocassions. Exam today suggestive of muscle spasm Have been prescribing MS contin 15 mg po daily and on a PRN basis. Interested in seeing a operations administrator I have added a muscle relaxant today [...] Pt declined to come and see our ems educator. Did not want to Inject Trulicity. Today he is agreable Previously started on by Kristina [facility] [...] Pt declined to come and see our ems educator. Did not want to Inject Trulicity. [...] Pt declined to come and see our ems educator. Did not want to Inject Trulicity [...] Pt declined to come and see our ems educator. Did not want to Inject Trulicity [...] Pt declined to come and see our ems educator. Did not want to Inject Trulicity [...] Encounters Date Type Department Care Team Description 02/02/2025 Refill [facility] [address] [place] [address] Claus Berg MD Essential hypertension 01/27/2025 Telephone [facility] [address] [place] [address] Blade Pringle MA chart prep from Last 3 Months Immunizations Immunization Administration Dates Next Due Influenza, IIV3, injectable [...] 72 10/27/2024 11:22 AM EDT Temperature 36.1 C (96.9 F) 10/27/2024 11:22 AM EDT Respiratory Rate 20 10/27/2024 11:22 AM EDT Oxygen Saturation 99% 10/27/2024 11:22 AM EDT Inhaled Oxygen Concentration - - Weight 88.5 kg (195 lb) 10/27/2024 11:22 AM EDT Height 175.3 cm (5' 9 ) 10/27/2024 11:22 AM EDT Body Mass Index 28.8 10/27/2024 11:22 AM EDT Plan of Treatment Upcoming Encounters Date Type Department Care Team (Late st Contact Info) Description 03/24/2025 11:00 AM EDT Office Visit [facility] [address], [place] [id number] Winston, Yue, OD [address] [place] [address] Health Maintenance Due Date Last Done Comments [...] COVID-19 Vaccine ( season) 2024 11/15/2020, 10/18/2020 Diabetes: Foot Exam 09/12/2024 09/12/2023, Diabetes: Hemoglobin A1C 11/23/2024 025, 12/12/2023, 09/12/2023, Additional history exists Influenza Vaccine (#1) 2025 06/12/2006 Diabetes: Urine Protein Screening 10/26/2025 10/26/2024, 10/09/2022, [...] Procedure Name Priority Date/Time Associated Diagnosis Comments ALBUMIN, RANDOM URINE W/CREATININE Routine 10/26/2024 9:49 AM EDT Type 2 diabetes mellitus without complication, without long-term current use of insulin ([facility]) LIPID PANEL, STANDARD Routine 10/26/2024 9:49 AM [...] Recently Relevant to Health Maintenance Results * (ABNORMAL) Albumin, Random Urine W/Creatinine (10/26/2024 9:49 AM EDT) Creatinine, Urine 135.56 mg/dL [facility] Microalbumin Urine 43.0 mg/L H [facility] Microalbum Creatinine Ratio Ur 31.7(H) <30 ug/mg cr [facility] Comment:Albumin/Creatinine R atio Reference Ranges: Normal: < 30 ug/mg creatinine Microalbuminuria: 30 - 300 ug/mg creatinineClinical Albuminuria: > 300 ug/mg creatinine Urine (Urine, Random) 10/26/2024 9:49 AM EDT 10/26/2024 11:21 AM EDT us Claus Weston MD LAB URINE ORDERABLES Final Result [facility] [address] [place] [phone] * (ABNORMAL) Lipid Panel, Standard (10/26/2024 9:49 AM EDT) Triglycerides 199(H) <150 mg/dL [facility] Comment:Desirable Triglyceri de: less than 150 mg/dLBorderline High Triglyceride 150-199 mg/dLHigh Triglyceride: 200-499 mg/dLVery High Triglyceride: greater than or equal to 5OO mg/dL Cholesterol 206(H) <200 mg/dL [facility] Comment:Desirable Cholestero l: less than 200 mg/dLBorderline High Cholesterol: 200-239 mg/dLHigh Cholesterol: greater than 239 mg/dL LDL Cholesterol Calculated 133(H) <100 mg/dL [facility] Comment:Desirable LDL: less than 100 mg/dLNear Optimal/Above Optimal LDL: 110- 129 mg/dLBorderline High LDL: 130-159 mg/dLHigh LDL: 160-189 mg/dLVery High LDL: greater than or equal to 190 mg/dL HDL Cholesterol 34(L) >40 mg/dL [facility] Comment:Desirable HDL: great er than 40 mg/dL Note: This HDL assay may give artificially low results in patients with liver disease. Blood Venous blood specimen / Unknown 10/26/2024 9:49 AM EDT 10/26/2024 11:49 AM EDT us Claus Weston MD LAB BLOOD ORDERABLES Final Result [facility] [address] [place] [phone] * (ABNORMAL) POCT glycosylated hemoglobin (Hgb A1c) (08/25/2024 3:12 PM EST) Hemoglobin A1C 9.4(A) 4.0 - 6.0 % QC Media Lot # [id number] Lot# Expiration Date ,223 Blood Capillary blood specimen / Unknown 08/25/2024 3:12 PM EST us Claus Weston MD POINT OF CARE TEST EN TER/EDIT ORDERABLES Final Result * Hepatitis C Antibody with Reflex to HCV, RNA, Quantitative, Real-Time PCR (10/09/2022 8:38 AM EST) Hepatitis C Antibody NON-REACT GALLO NON-REACT GALLO [facility] Index <0.02 <1.00 [facility] Comment: HCV antibody was non-reactive. There is no laboratory evidence of HCV infection. In most cases, no further action is required. However, if recent HCV exposure is suspected, a test for HCV RNA (test code 91411) is suggested. For additional information please refer to http://education.[employer]/faq/FXV12a9 (This link is being provided for informational/ educational purposes only.) Blood Venous blood specimen / Unknown 10/09/2022 8:38 AM EST 10/09/2022 8:38 AM EST Narrative [facility] - 10/10/2022 6:28 PM EST FASTING:YES FASTING: YES Claus Weston MD LAB BLOOD ORDERABLES Final Result [facility] [address] [facility], [facility], [place] [address] [facility] [address], ([address]) [place] [address] * Colonoscopy (01/10/2018) Colonoscopy Normal Normal 01/10/2018 Tara Rene - 01/10/2018 4:03 PM EDT Recommended 10 year follow up Historical Provider HEALTH MAINTENANCE Edited Result - Final from Last 3 Months or Most Recently Relevant to Health Maintenance Insurance MEDICARE HSN FULL DENTAL - HSN FULL (MEDICAID) Care Teams Needle Punch Operator Relationship Specialty Start Date End Date Claus Berg MD [address] [facility] [place] [address] PCP - General Internal Medicine 05/12/14
--- OUTSIDE RECORDS SUMMARY | 2025-03-10 11:17 | XMS_ITS | Clinical Summary ---
Author Organization [employer] [facility] ity Address [address] [place] [address] Care Team Providers Care Anvilsmith Name Role Phone Unavailable Primary Care Provider [...] Vaccine ( - 2023-2 5 season) 2024 Depression Screening 08/05/2024 Influenza Vaccine (#1) 2025 RSV Immunization Adult Patie nts (1 [...]
--- OUTSIDE RECORDS SUMMARY | 2025-03-10 11:17 | XMS_ITS | Clinical Summary ---
Author Organization [facility] Address [address] [place] [phone] Phone Care Team Providers Care Verifier Name Role Phone Pcp, Unknown Primary Care Provider Unavailabl e Social History Tobacco Use Types Packs/Day Years Used Date Smoking Tobacco: Never Assessed Education Answer Date Recorded Are you interested in more education? Not on jairon e 11/16/2023 Are you concerned about learning? Not on file 11/16/2023 No 11/16/2023 No 11/16/2023 Digital Access Answer Date Recorded No 11/16/2023 No 11/16/2023 Reliable internet access at home? Not on file 11/16/2023 Device with a working camera? Not on file Sex and Gender Information Value Date Recorded Sex Assigned at Not on file Legal Sex Male 9:45 PM EDT Gender Identity Not on file Sexual Orientation Not on file Plan of Treatment Health Maintenance Due Date Last Done Comments LIPID PANEL 1958 DEPRESSION SCREENING 1970 SMOKING Hx and SMOKELESS TOB ACCO SCREENING 1971 HEPATITIS C SCREENING 1976 COLOGUARD 2003 COLONOSCOPY 2003 COLORECTAL CANCER SCREENING 2003 FIT TEST 2003 FOBT 2003 SIGMOIDOSCOPY 2003 VIRTUAL COLONOSCOPY 2003 ZOSTER VACCINES (1 of 2) 2008 PNEUMOCOCCAL VACCINES (50+ y ears) (2 of 2 - PCV) 01/21/2010 01/21/2009 COVID-19 VACCINE ( - 2023-2 5 season) 2024 Adult Td,Tdap Booster 02/07/2027 02/07/2017 RSV VACCINE (1 - 1-dose 75+ series) 2033 HEPATITIS A VACCINES Aged Out No long er eligible based on patient's age to complete this topic HIB VACCINES Aged Out No longer eligi ble based on patient's age to complete this topic MENINGOCOCCAL VACCINES (ACWY) Aged Out No longer eligible based on patient's age to complete this topic MENINGOCOCCAL VACCINES (B) Aged Out N o longer eligible based on patient's age to complete this topic Medical Devices Not on file Insurance MEDICARE PART A & B [facility] MEDICARE PART A & [facility] MED[facility]ARE PART A & B [place] MEDICARE PART A & [facility] B [facility] Care Teams Verifier Relationship Specialty Start Date End Date Pcp, Unknown PCP - General 11/15/23 Additional Source Comments The information contained in this document represents components of the legal health record. It is not the complete legal health record.[facility]
== END 2025-03-10 10:43 | disposition left against medical advice (07) ==
PROVIDERS: Emergency Provider Emergency Medicine; PCP Internal Medicine
DX: M54.50 Low back pain, unspecified (principal)
CPT/HCPCS: 99281

== ENCOUNTER 2025-05-01 17:57 | Emergency (ER) | payer MEDICARE, MEDICAID, SELFPAY ==
--- NOTE | ~2025-05-01 | XR_ITS ---
CLINICAL HISTORY: lower back pain 3 views lumbar spine Comparison: None provided Findings: Straightening of the lumbar lordosis. No subluxation. Vertebral body height is maintained. No acute fracture. L5-S1 degenerative disc disease and facet arthropathy. Multilevel spondylosis throughout the lumbar spine. Atherosclerotic vascular disease. IMPRESSION: 1. No acute findings. 2. Degenerative changes. This document has been electronically signed by: Ruth Arteaga MD on 05/01/2025 19:18:37
[2025-05-01 18:11] VITALS: BP 139/74; PULSE 91; RESP 16; TEMP 36.3; O2SAT 99; BMI 29.0
--- NOTE | 2025-05-01 18:25 | ED_ITS ---
HPI - General Adult General Chief complaint: Back Pain/Injury Stated complaint: lower back pain Time Seen by Provider: 05/01/25 19:07 Source: patient, RN notes reviewed and old records reviewed Mode of arrival: ambulatory Limitations: no limitations History of Present Illness ED Provider: Karie HPI narrative: Patient is a 65-year-old male with pmhx of DM, chronic back pain, BPH presenting with complaint of acute on chronic lower back pain for the past 2 months. Reports pain radiates down left leg. Denies saddle anesthesia or bowel or bladder incontinence. Denies fevers. States pain began years ago when he was attacked by a pit bull while riding his bike which caused him to fall. Used to take morphine for his chronic back pain but has discontinued this as he was told it was addictive. Denies any recent trauma. MD complaint: back pain Onset (ago): month(s) Related Data Home Medications ?Medication ?Instructions ?Recorded ?Confirmed amlodipine 5 mg tablet 5 mg PO DAILY 08/23/20 blood sugar diagnostic #10 ea 08/23/20 lancets 28 gauge #100 ea 08/23/20 lisinopril 20 mg tablet 20 mg PO DAILY 08/23/20 metformin 1,000 mg tablet 1,000 mg PO 08/23/20 morphine 15 mg tablet,extended mg PO 08/23/20 release Previous Rx's ?Medication ?Instructions ?Recorded pentoxifylline 400 mg 400 mg PO BID 90 days #180 t abs 08/23/20 tablet,extended release vitamin E (dl, acetate) 450 mg 450 mg PO DAILY #90 cap s 08/23/20 (1,000 unit) capsule cyclobenzaprine 10 mg tablet 10 mg PO Q8H #14 tabs 08/27 ketorolac 10 mg tablet 10 mg PO Q8H #14 tabs acetaminophen 500 mg tablet 500 mg PO Q6H PRN fever or pain 09/13/22 (Tylenol Extra Strength) #14 tabs cyclobenzaprine 5 mg tablet 5 mg PO Q8H PRN pain (scal e score 09/13/22 7-10) 5 days #14 tabs cephalexin 500 mg capsule 500 mg PO QID 10 days #40 ca ps 05/23/23 doxycycline hyclate 100 mg tablet 100 mg PO BID #20 ta bs 10/19/23 cephalexin 500 mg capsule 500 mg PO QID #28 caps 11/11 mupirocin 2 % topical ointment 1 appl topical BID 1 we ek #22 grams 11/11/24 cyclobenzaprine 10 mg tablet 10 mg PO TID PRN muscle s pasm #10 05/01/25 tabs lidocaine 5 % topical patch 1 patch topical DAILY #15 ea 05/01/25 prednisone 20 mg tablet 20 mg PO DAILY #5 tabs 05/01 Allergies Allergy/AdvReac Type Severity Reaction Status Date / Time No Known Allergies (No Known Allergy Verified 05/01/25 18:12 Allergies*) Review of Systems Review of Systems: as per hpi Yes all other systems are reviewed and are negative Constitutional: Constitutional: Reports as per HPI COUNTS INCLUDE [facility] BEDS AT [facility] Past Medical History Medical History (Updated 05/01/25 @ 19:26 by Ann Tiwari NP) HTN (hypertension) Diabetes Social History Social History (Updated 12/04/24 @ 10:27 by Jose Armando Tom) Household Members: None Alcohol intake: current Alcohol intake frequency: a few times a week Patient Tobacco Use Status: Former Tobacco user Tobacco use type: Cigarette Advance Directives: No Advance Directives Information Provided: No service: No Current occupational status: disabled Physical Exam ED Vital Signs: Vital Signs - 24 hr 05/01/25 18:11 Temperature 97.3 F Pulse Rate 91 Respiratory Rate 16 Blood Pressure 139/74 Pulse Oximetry 99 Oxygen Delivery Method Room Air BMI result Body Mass Index 29.0 Vital signs have been reviewed and appear to be correct. Blood pressure normal. Heart rate normal. Respiratory rate normal. Temperature normal. Oxygen saturation normal. Const General: cooperative, healthy appearing and no acute distress Orientation/consciousness: oriented to person, oriented to place, oriented to time and patient oriented x3 Limitations: no limitations HENMT Head: Yes normocephalic and Yes atraumatic Ears: external ears normal General nose exam: Normal external nose present Face and sinus: Yes face symmetric Mouth: oropharynx normal and moist mucous membranes Throat: Yes uvula midline Eyes Pupils: Equal, round and reactive pupils present Neck Neck: Yes normal visual inspection, Yes no meningeal signs and Yes supple Resp Effort & Inspection: normal respiratory effort and able to speak in complete sentences Auscultation: clear to auscultation bilaterally Cardio Rate: regular rate Rhythm: regular rhythm Heart sounds: S1 normal heart sound present and S2 normal heart sound present GI Palpation (GI): Soft to palpation and nontender Auscultation: normoactive bowel sounds General: Yes no CVA tenderness Back/Spine/Pelvis Back: no CVA tenderness Thoracic/Lumbar Spine: thoracic and lumbar spine normal to inspection, thoraco- lumbar ROM normal, straight leg raise negative bilaterally, pain with thoraco- lumbar ROM, paraspinal muscle tenderness bilaterally in the mid lumbar, No thoracic spinal tenderness and No lumbar spinal tenderness Skin General skin exam: elasticity normal and turgor normal Neuro General: oriented to person, oriented to place, oriented to time, patient oriented x3, gait normal, tone normal, moves all extremities, Normal light touch and pain sensation, no meningeal signs, no focal motor deficits, CN's II-XI intact bilaterally and deep tendon reflexes 2+ bilaterally Cranial nerves: Yes Equal, round and reactive pupils present Cognition (Neuro): normal cognition Motor exam (neuro): 5/5 motor strength present throughout, Normal motor muscle tone present throughout and Motor abnormalities not present Extrem General: Yes full ROM, Yes no pedal edema and Yes no calf tenderness Psych Mental Status: mental status grossly normal Affect: normal affect Thought process: Normal thought process present Course Course Course Narrative: This is a rapid medical exam performed by Juliana Tiwari NP: Additional HPI, ROS, PE not included below will be deferred to primary provider. Patient is a 65y/o M presenting with L lower back pain radiating down left leg for two months. Denies fall or other trauma. Plan: xray Medical Decision Making Medical Decision Making MDM Narrative: Patient is a 65-year-old male with pmhx of DM, chronic back pain, BPH presenting with complaint of acute on chronic lower back pain for the past 2 months. On exam patient is awake, A+Ox3, VS WNL, afebrile, normal neurological exam without focal deficits, physical exam findings as above. Given reported symptoms and p hysical exam findings, initial differential includes but is not limited to initial differential includes lumbar strain, lumbar radiculopathy, degenerative disc disease, disc herniation, spinal stenosis, spondylosis. Less likely vertebral fracture. Do not suspect malignancy/mass, SEA, cauda equina/cord compression. Lumbar x-ray notable for L5/S1 degenerative changes, no acute findings. My interpretation is in agreement with the radiologist's interpretation. Results discussed with patient and all questions answered. Will treat with short course of prednisone, lidocaine patches and muscle re laxer. Discussed with patient that the prednisone can elevated his blood glucose levels. Follow up with PCP as needed. States he has not yet seen a community product specialist, will refer to [facility]. Return precautions discussed. Patient verbalized understanding of and agreement with plan. Differential Diagnosis Differential Diagnoses: The differential diagnosis associated with the presentation includes as per [facility] Admission/Observation Consideration of admission/observation: Escalation of care including admission/observation considered Patient would have been admitted to the hospital and transferred to appropriate facility had their clinical presentation warranted hospital admission. Independent Interpretation I performed an independent interpretation of an: Plain X-Ray Interpretation: Lumbar x-ray notable for L5/S1 degenerative changes, no acute findings. Radiology Impression Discussion of test interpretation with radiology: I have reviewed the radiologist's reading. Radiologist Impression: 3 views lumbar spine Comparison: None provided Findings: Straightening of the lumbar lordosis. No subluxation. Vertebral body height is maintained. No acute fracture. L5-S1 degenerative disc disease and facet arthropathy. Multilevel spondylosis throughout the lumbar spine. Atherosclerotic vascular disease. IMPRESSION: 1. No acute findings. 2. Degenerative changes. External Record Review External record reviewed: Inpatient record, Office record and Outpatient record Prescription Management I considered prescription management with: Pain Medication and Other Discharge Plan Discharge Clinical Impression: Lumbar radiculopathy Patient Disposition: Home, Self-Care Instructions: Lumbar Radiculopathy (ED), Lower Back Exercises (ED) Additional Instructions: You were evaluated in the emergency department today for lower back pain. This is likely due to an inflammation of the sciatic nerve with runs from the lower back down both legs. You are being prescribed a course of prednisone which is a steroid to decrease inflammation. Be aware that this medication can elevated your blood sugar levels. You are also being prescribed cyclobenzaprine which is a muscle relaxer. This medication can cause drowsiness and should not be combined with alcohol. You have been prescribed 5% topical lidocaine patches which you can wear for up to 12 hours in a 24 hour period. Do not apply heat directly over the patches. Use all medications as prescribed. Please schedule an appointment for follow-up with your primary care physician this week for further evaluation of your symptoms. Return to the emergency department if you experience worsening back pain, difficulty walking, fevers, numbness, tingling, incontinence, groin numbness or tingling, or any other concerning symptoms. Prescriptions: New prednisone 20 mg tablet 20 mg PO DAILY Qty: 5 0RF cyclobenzaprine 10 mg tablet 10 mg PO TID PRN (Reason: muscle spasm) Qty: 10 0RF lidocaine 5 % adhesive patch,medicated 1 patch topical DAILY Qty: 15 0RF Rx Instructions: leave on most painful area for up to 12 hrs No Action cyclobenzaprine 5 mg tablet 5 mg PO Q8H PRN (Reason: pain (scale score 7-10)) 5 Days Qty: 14 0RF acetaminophen [Tylenol Extra Strength] 500 mg tablet 500 mg PO Q6H PRN (Reason: fever or pain) Qty: 14 0RF cyclobenzaprine 10 mg tablet 10 mg PO Q8H Qty: 14 0RF ketorolac 10 mg tablet 10 mg PO Q8H Qty: 14 0RF Rx Instructions: first dose given in the ED by IM and patient tolerated well cephalexin 500 mg capsule 500 mg PO QID 10 Days Qty: 40 0RF doxycycline hyclate 100 mg tablet 100 mg PO BID Qty: 20 0RF mupirocin 2 % ointment 1 appl topical BID 7 Days Qty: 22 0RF cephalexin 500 mg capsule 500 mg PO QID Qty: 28 0RF morphine 15 mg tablet extended release PO amlodipine 5 mg tablet 5 mg PO DAILY (DME) FreeStyle Lite Strips Strip See Rx Instructions Not Applicable DAILY Qty: 10 Rx Instructions: As directed (DME) lancets 28 gauge misc See Rx Instructions topical DAILY Qty: 100 Rx Instructions: As directed lisinopril 20 mg tablet 20 mg PO DAILY metformin 1,000 mg tablet 1,000 mg PO pentoxifylline 400 mg tablet extended release 400 mg PO BID 90 Days Qty: 180 1RF Rx Instructions: administer with meals vitamin E (dl, acetate) 450 mg (1,000 unit) capsule 450 mg PO DAILY Qty: 90 1RF Referrals: [facility] [Provider Group, Sports Medicine] Referral Note: acute on chronic pain Clinical Impression: Lumbar radiculopathy Print Language: Japanese
--- OUTSIDE RECORDS SUMMARY | 2025-05-01 19:16 | XMS_ITS | Clinical Summary ---
Author Organization [employer] [facility] ity Address [address] [place] [address] Care Team Providers Care Brick Tosser Name Role Phone Unavailable Primary Care Provider [...] 2008 Zoster Vaccines (1 of 2) 2008 Depression Screening 08/05/2024 COVID-19 Vaccine (1 - 2023-2 5 season) 2025 Influenza Vaccine (#1) 2025 RSV Immunization Adult [...]
--- OUTSIDE RECORDS SUMMARY | 2025-05-01 19:16 | XMS_ITS | Clinical Summary ---
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 30 tablet 10/02/19 23 Active morphine CR (MS Contin) 15 MG 12 hr tabletIndications :Chronic midline low back pain without sciatica Take 1 tablet (15 mg) by mouth if needed each day for severe pain. Do not crush, chew, or split. 7 tablet 06/08/20 24 Active lisinopril 20 MG tabletIndications :Essential hypertension TAKE 1 TABLET BY MOUTH EVERY DAY 90 tablet 1 08/25/19 25 Active Continuous Glucose Gas Stove Servicer Helper (FreeStyle Arnoldo 2 [place]) deviceIndications :Type 2 diabetes mellitus without complication, without long-term current use of insulin ([facility]) Scan sensor every 8 hours 1 each 3 08/25/19 25 Active Continuous Glucose Sensor (FreeStyle Arnoldo 2 Sensor) miscIndications:T ype 2 diabetes mellitus without complication, without long-term current use of insulin ([facility]) Apply 1 sensor every 14 days 2 each 3 08/25/19 25 Active rosuvastatin (Crestor) 10 MG tabletIndications :Mixed hyperlipidemia Take 1 tablet (10 mg) by mouth Once per day. 30 tablet 6 10/28/19 25 026 Active Dulaglutide (Trulicity) 0.75 MG/0.5ML solution auto-injectorIndi cations:Type 2 diabetes mellitus without complication, without long-term current use of insulin ([facility]) Inject 0.75 mg under the skin 1 (one) time per week. 0.5 mL 10/28/19 25 Active metFORMIN (Glucophage) 1000 MG tablet TAKE 1 TABLET BY MOUTH TWICE DAILY WITH THE MORNING AND EVENING MEAL 180 tablet 1 02/03/20 25 Active amLODIPine (Norvasc) 5 MG tabletIndications :Essential hypertension TAKE 1 TABLET(5 MG) BY MOUTH DAILY 90 tablet 1 02/03/20 25 Active diclofenac (Cataflam) 50 MG tabletIndications :Acute midline low back pain with right-sided sciatica Take 1 tablet (50 mg) by mouth 3 times daily. 30 tablet 1 03/13/20 25 026 Active cyclobenzaprine (Flexeril) 10 MG tabletIndications :Acute midline low back pain with right-sided sciatica Take 1 tablet (10 mg) by mouth 3 times daily for 10 days. 30 tablet 03/13/20 25 Active lidocaine (Lidoderm) 5 % patchIndications: Acute midline low back pain with right-sided sciatica Apply 1 patch topically Once per day. Remove & discard patch within 12 hours or as directed by MD. 30 patch 1 03/13/20 25 Active Acetaminophen Extra Strength 500 MG tablet TAKE 1 TABLET BY MOUTH EVERY 6 HOURS NEEDED FOR FEVER OR PAIN 09/13/19 23 025 Discontin ued(Thera py completed ) Active Problems Problem Noted Date Diagnosed Date Acute midline low back pain with right-sided sci atica 03/13/2025 Assessment & Plan (03/13/2025 10:12 AM EDT): Apply heat on affected area He will receive Toradol injection at office, he was instructed to start diclofenac tomorrow not today, I also prescribed for him short course of muscle relaxer Flexeril and lidocaine patches to apply locally He was referred to physical therapy Other specified anemias 10/27/2024 Assessment & Plan [...] loss. The 10-year ASCVD risk score (Ivonne DK, et al., 2019) is: 44% Values used [...] LDL-C. Paul SHERMAN et al. PACO. 2013;310(19): 6711-4005 (http://education.[employer]/faq/VNW410) Chol/HDLC Ratio <5.0 (calc) 6.1 High 5.4 [...] a PRN basis. Pt was seen at [facility] recently with c/o acute on chronic back pain Pt already scheduled to go to [facility] 12/20/2023 Assessment & Plan (10/02/2022 [...] much unchanged. I Patient was seen at [facility] in 2 different ocassions. Exam today suggestive of muscle spasm Have been prescribing MS contin 15 mg po daily and on a PRN basis. Interested in seeing a informatica developer I have added a muscle relaxant today [...] Pt declined to come and see our art educator. Did not want to Inject Trulicity. [...] Pt declined to come and see our art educator. Did not want to Inject Trulicity. [...] Pt declined to come and see our art educator. Did not want to Inject Trulicity [...] Pt declined to come and see our art educator. Did not want to Inject Trulicity [...] Pt declined to come and see our art educator. Did not want to Inject Trulicity [...] Encounters Date Type Department Care Team Description 03/24/2025 11:00 AM EDT Office Visit [facility] [address] [place] [address] Winston, Yue, OD Diabetes type 2, no ocular involvement (CMS/HCC) (Primary Dx); Pseudophakia; Presbyopia 03/24/2025 Travel 03/13/2025 9:40 AM EDT Office Visit [facility] [address] [place], [place] [phone] Tomasa Trevino MD Acute midline low back pain with right-sided sciatica 03/13/2025 Travel 03/11/2025 Telephone [facility] [address] [place], [place] [phone] Claus Berg MD Medication Question 02/02/2025 Refill [facility] [address] [place], [place] [phone] Claus Berg MD Essential hypertension from Last 3 Months Immunizations Immunization Administration [...] Sign Reading Time Taken Comments Blood Pressure 156/85 03/13/2025 9:25 AM EDT Pulse 68 03/13/2025 9:25 AM EDT Temperature 35.9 C (96.6 F) 03/13/2025 9:25 AM EDT Respiratory Rate 17 03/13/2025 9:25 AM EDT Oxygen Saturation 97% 03/13/2025 9:25 AM EDT Inhaled Oxygen Concentration - - Weight 89.9 kg (198 lb 3.2 oz) 03/13/2025 9:25 A M EDT Height 175.3 cm (5' 9 ) 03/13/2025 9:25 AM EDT Body Mass Index 29.27 03/13/2025 9:25 AM EDT Plan of Treatment Upcoming Encounters Date Type Department Care Team (Late st Contact Info) Description 05/10/2025 11:00 AM EDT Office Visit [facility] [address] [place], [place] [phone] Rm Díaz DDS [address] [place], [place] [phone] Health Maintenance Due Date Last Done Comments CT Colonography 1958 Dental Prophylaxis 1958 FIT DNA/Cologuard 1958 FIT 1958 FOBT 1960 Sigmoidoscopy 1960 Zoster Vaccines (1 of 2) 2008 Pneumococcal Vaccine: 50+ Years (2 of 2 - PCV) 01/21/2010 01/21/2009 Dental X-Ray: Bitewings 07/24/2012 07/23/2011 Dental Oral Exam 05/05/2018 11/01/2017, , 01/13/2014 Dental X-Ray: Full Mouth 11/02/2020 018, 01/13/2014, 07/23/2011 Diabetes: Foot Exam 09/12/2024 09/12/2023, Diabetes: Hemoglobin A1C 11/23/2024 025, 12/12/2023, 09/12/2023, Additional history exists COVID-19 Vaccine ( season) 2025 11/15/2020, 10/18/2020 Influenza Vaccine (#1) 2025 06/12/2006 Diabetes: Urine Protein Screening 10/26/2025 10/26/2024, 10/09/2022, 09/20/2021, Additional history exists Lipid Panel 10/26/2025 10/26/2024, 09/06, 10/09/2022, Additional history exists Alcohol/Substance Use Screening 10/27/2025 10/27/2024 Depression Screening 10/27/2025 10/27/2024, 10/28/19 SDOH Screening 10/27/2025 10/27/2024 Tobacco Screening 04/14/2026 04/14/2025 DTaP/Tdap/Td Vaccines (2 - Td or Tdap) 02/07/2027 02/07/2017, 05/08/2005 Eye Exam 03/24/2027 03/24/2025, 03/06, 03/24/2025, Additional history exists Colonoscopy 01/11/2028 01/10/2018 Colorectal Cancer Screening 01/11/2028 [...] complication, without long-term current use of insulin ([facility]) LIPID PANEL, STANDARD Routine 10/26/2024 9:49 AM [...] 9:49 AM EDT) Creatinine, Urine 135.56 mg/dL [facility] Microalbumin Urine 43.0 mg/L [facility] Microalbum Creatinine Ratio Ur 31.7(H) <30 ug/mg cr [facility] Comment:Albumin/Creatinine R atio Reference Ranges: Normal: < 30 ug/mg creatinine Microalbuminuria: 30 - 300 ug/mg creatinineClinical Albuminuria: > 300 ug/mg creatinine Urine (Urine, Random) 10/26/2024 9:49 AM EDT 10/26/2024 11:21 AM EDT us Claus Weston MD LAB URINE ORDERABLES Final Result [facility] [address] [place] [address] [phone] * (ABNORMAL) Lipid Panel, Standard (10/26/2024 9:49 AM EDT) Triglycerides 199(H) <150 mg/dL [facility] Comment:Desirable Triglyceri de: less than 150 mg/dLBorderline High Triglyceride 150-199 mg/dLHigh Triglyceride: 200-499 mg/dLVery High Triglyceride: greater than or equal to 5OO mg/dL Cholesterol 206(H) <200 mg/dL [facility] Comment:Desirable Cholestero l: less than 200 mg/dLBorderline High Cholesterol: 200-239 mg/dLHigh Cholesterol: greater than 239 mg/dL LDL Cholesterol Calculated 133(H) <100 mg/dL [facility] Comment:Desirable LDL: less than 100 mg/dLNear Optimal/Above Optimal LDL: 110- 129 mg/dLBorderline High LDL: 130-159 mg/dLHigh LDL: 160-189 mg/dLVery High LDL: greater than or equal to 190 mg/dL HDL Cholesterol 34(L) >40 mg/dL [facility] Comment:Desirable HDL: great er than 40 mg/dL Note: This HDL assay may give artificially low results in patients with liver disease. Blood Venous blood specimen / Unknown 10/26/2024 9:49 AM EDT 10/26/2024 11:49 AM EDT Claus Weston MD LAB BLOOD ORDERABLES Final Result [facility] [address] [place] [address] [phone] * (ABNORMAL) POCT glycosylated hemoglobin (Hgb A1c) (08/25/2024 3:12 PM EST) Hemoglobin A1C 9.4(A) 4.0 - 6.0 % QC Media Lot # [id number] Lot# Expiration Date ,[id number] Blood Capillary blood specimen / Unknown 08/25/2024 3:12 PM EST Claus Weston MD POINT OF CARE TEST EN TER/EDIT ORDERABLES Final Result * Hepatitis C Antibody with Reflex to HCV, RNA, Quantitative, Real-Time PCR (10/09/2022 8:38 AM EST) Hepatitis C Antibody NON-REACT GALLO NON-REACT GALLO [facility] Index <0.02 <1.00 [facility] Comment: HCV antibody was non-reactive. There is no laboratory evidence of HCV infection. In most cases, no further action is required. However, if recent HCV exposure is suspected, a test for HCV RNA (test code 25891) is suggested. For additional information please refer to http://[employer]/faq/RQP35y2 (This link is being provided for informational/ educational purposes only.) Blood Venous blood specimen / Unknown 10/09/2022 8:38 AM EST 10/09/2022 8:38 AM EST Narrative [facility] - 10/10/2022 6:28 PM EST FASTING:YES FASTING: YES Claus Weston MD LAB BLOOD ORDERABLES Final Result [facility] [address], [place] [address] [facility] [address] [facility], ([address]) [place] [address] * Colonoscopy (01/10/2018) Colonoscopy Normal Normal 01/10/2018 Nai Tara Britton - 01/10/2018 4:03 PM EDT Recommended 10 year follow up Historical Provider HEALTH MAINTENANCE Edited Result - Final from Last 3 Months or Most Recently Relevant to Health Maintenance Insurance MEDICARE [facility] STANDARD HSN FULL Care Teams Treadle Cut Off Saw Operator Relationship Specialty Start Date End Date Claus Berg MD [address] [place] [address] KEYSHA Salvador [phone] PCP - General Internal Medicine 05/12/14
--- OUTSIDE RECORDS SUMMARY | 2025-05-01 19:16 | XMS_ITS | Encounter Summary ---
Author Organization [employer] [facility] Address [address] [place] [address] [address] [place] [address] Care Team Providers Care Liquid Loader Name Role Phone Claus Berg MD Primary Care Provide r Encounter Details Date Type Department Care Team (Late st Contact Info) Description 12/12/2022 Abstract [facility] [address] [place] [phone] Claus Berg MD [address] [place] [address] Social History Tobacco Use Types Packs/Day Years [...] Description 05/10/2025 11:00 AM EDT Office Visit [facility] [address] [place] [address] Rm Díaz DDS [address] [place] [address] documented as of this encounter Procedures Procedure Name Priority Date/Time Associated Diagnosis Comments HM COLONOSCOPY Routine 01/10/2018 documented in this encounter [...] documented as of this encounter Care Teams Liquid Loader Relationship Specialty Start Date End Date Claus Berg MD [address] [place] [id number] PCP - General Internal Medicine 05/12/14 documented as of this encounter
--- OUTSIDE RECORDS SUMMARY | 2025-05-01 19:16 | XMS_ITS | Clinical Summary ---
Author Organization [facility] Address [address] [place] [phone] Phone Care Team Providers Care Music Autographer Name Role Phone Pcp, Unknown Primary Care [...] (2 of 2 - PCV) 01/21/2010 01/21/2009 INFLUENZA VACCINE (#1) 2025 COVID-19 VACCINE ( - 2023-2 5 season) 2025 Adult Td,Tdap Booster 02/07/2027 02/07/2017 RSV VACCINE [...] file Insurance MEDICARE PART A & B [facility] MEDICARE PART A & B [place] [facility] [place] [facility] B [facility] Care Teams Music Autographer Relationship Specialty Start Date End Date Pcp, Unknown PCP - General 11/15/23 Additional Source Comments The information contained in this document represents components of the legal health record. It is not the complete legal health record.[facility]
--- NOTE | 2025-05-01 19:36 | PC.NURSE ---
provider d/c pt from [facility]
[2025-05-01 19:52] VITALS: BP 139/74; PULSE 91; RESP 16; TEMP 36.3; O2SAT 99
== END 2025-05-01 19:54 | disposition home or self-care (01) ==
PROVIDERS: Emergency Provider Emergency Medicine; PCP Internal Medicine
DX: M54.16 Radiculopathy, lumbar region (principal); G89.29 Other chronic pain; E11.9 Type 2 diabetes mellitus without complications; I10 Essential (primary) hypertension; Z79.899 Other long term (current) drug therapy; Z87.891 Personal history of nicotine dependence
CPT/HCPCS: 72100; 99283

== ENCOUNTER → 2025-05-01 18:18 | Outpatient (BNV) | payer MEDICARE, MEDICAID, SELFPAY | PROVIDERS: Emergency Provider Emergency Medicine; PCP Internal Medicine; Visit Provider Specialist | DX: M51.360 Other intervertebral disc degeneration, lumbar region with discogenic back pain only (principal) | CPT/HCPCS: 72100 ==